=== PATIENT | male | born 1945 | race Two or more races ===

== ENCOUNTER → 2023-04-04 | Outpatient (BNV) | payer MEDICARE, MEDICAID, SELFPAY | PROVIDERS: Visit Provider Internal Medicine Hypertension Specialist | DX: N18.6 End stage renal disease (principal) | CPT/HCPCS: 90960 ==

== ENCOUNTER → 2023-05-04 | Outpatient (BNV) | payer MEDICARE, MEDICAID, SELFPAY | PROVIDERS: Visit Provider Internal Medicine Hypertension Specialist | DX: N18.6 End stage renal disease (principal) | CPT/HCPCS: 90962 ==

== ENCOUNTER → 2023-06-04 | Outpatient (BNV) | payer MEDICARE, MEDICAID, SELFPAY | PROVIDERS: Visit Provider Internal Medicine Hypertension Specialist | DX: N18.6 End stage renal disease (principal) | CPT/HCPCS: 90960 ==

== ENCOUNTER → 2023-07-05 | Outpatient (BNV) | payer MEDICARE, MEDICAID, SELFPAY | PROVIDERS: Visit Provider Internal Medicine Hypertension Specialist | DX: N18.6 End stage renal disease (principal) | CPT/HCPCS: 90961 ==

== ENCOUNTER → 2023-08-03 | Outpatient (BNV) | payer MEDICARE, MEDICAID, SELFPAY | PROVIDERS: Visit Provider Internal Medicine Hypertension Specialist | DX: N18.6 End stage renal disease (principal) | CPT/HCPCS: 90960 ==

== ENCOUNTER → 2023-09-03 | Outpatient (BNV) | payer MEDICARE, MEDICAID, SELFPAY | PROVIDERS: Visit Provider Internal Medicine Hypertension Specialist | DX: N18.6 End stage renal disease (principal) | CPT/HCPCS: 90960 ==

== ENCOUNTER → 2023-10-03 | Outpatient (BNV) | payer MEDICARE, MEDICAID, SELFPAY | PROVIDERS: Visit Provider Internal Medicine Hypertension Specialist | DX: N18.6 End stage renal disease (principal) | CPT/HCPCS: 90960 ==

== ENCOUNTER → 2023-11-03 | Outpatient (BNV) | payer MEDICARE, MEDICAID, SELFPAY | PROVIDERS: Visit Provider Internal Medicine Hypertension Specialist | DX: N18.6 End stage renal disease (principal) | CPT/HCPCS: 90960 ==

== ENCOUNTER → 2023-12-03 | Outpatient (BNV) | payer MEDICARE, MEDICAID, SELFPAY | PROVIDERS: Visit Provider Internal Medicine Hypertension Specialist | DX: N18.6 End stage renal disease (principal) | CPT/HCPCS: 90960 ==

== ENCOUNTER → 2024-01-03 | Outpatient (BNV) | payer MEDICARE, MEDICAID, SELFPAY | PROVIDERS: Visit Provider Internal Medicine Hypertension Specialist | DX: N18.6 End stage renal disease (principal) | CPT/HCPCS: 90961 ==

== ENCOUNTER → 2024-02-03 | Outpatient (BNV) | payer MEDICARE, MEDICAID, SELFPAY | PROVIDERS: Visit Provider Internal Medicine Hypertension Specialist | DX: N18.6 End stage renal disease (principal) | CPT/HCPCS: 90961 ==

== ENCOUNTER → 2024-03-04 | Outpatient (BNV) | payer MEDICARE, MEDICAID, SELFPAY | PROVIDERS: Visit Provider Internal Medicine Hypertension Specialist | DX: N18.6 End stage renal disease (principal) | CPT/HCPCS: 90961 ==

== ENCOUNTER → 2024-04-04 | Outpatient (BNV) | payer MEDICARE, MEDICAID, SELFPAY | PROVIDERS: Visit Provider Internal Medicine Hypertension Specialist | DX: N18.6 End stage renal disease (principal) | CPT/HCPCS: 90961 ==

== ENCOUNTER → 2024-05-04 | Outpatient (BNV) | payer MEDICARE, MEDICAID, SELFPAY | PROVIDERS: Visit Provider Internal Medicine Hypertension Specialist | DX: N18.6 End stage renal disease (principal) | CPT/HCPCS: 90960 ==

== ENCOUNTER → 2024-06-04 | Outpatient (BNV) | payer MEDICARE, MEDICAID, SELFPAY | PROVIDERS: Visit Provider Internal Medicine Hypertension Specialist | DX: N18.6 End stage renal disease (principal) | CPT/HCPCS: 90962 ==

== ENCOUNTER → 2024-07-05 | Outpatient (BNV) | payer MEDICARE, MEDICAID, SELFPAY | PROVIDERS: Visit Provider Internal Medicine Hypertension Specialist | DX: N18.6 End stage renal disease (principal) | CPT/HCPCS: 90961 ==

== ENCOUNTER → 2024-08-02 | Outpatient (BNV) | payer MEDICARE, MEDICAID, SELFPAY | PROVIDERS: PCP Internal Medicine; Visit Provider Internal Medicine Hypertension Specialist | DX: N18.6 End stage renal disease (principal) | CPT/HCPCS: 90961 ==

== ENCOUNTER 2024-08-08 10:54 | Outpatient (REF) | payer MEDICARE, MEDICAID, SELFPAY ==
--- NOTE | ~2024-08-08 | US_ITS ---
EXAMINATION: US TRIPLEX UPPER EXTREMITY, RIGHT CLINICAL INFORMATION: End-stage renal disease. Dialysis fistula. Swelling and redness right upper extremity. COMPARISON: None available. TECHNIQUE: Color-flow triplex imaging with spectral analysis and compression Doppler was performed on the right upper extremity. FINDINGS: There is partial compressibility phasic flow and augmentation and the right internal jugular vein. The right subclavian vein, cephalic vein, axillary, brachial, basilic demonstrated normal phasic flow and compressibility. There is a 4.8 cm irregular shaped anechoic abnormality without flow on color Doppler interrogation centered in the right axilla. US/US venous duplex UE RT IMPRESSION: Nonocclusive thrombus, right internal jugular vein. 4.8 cm fluid collection, right axilla. Findings communicated to the requesting physician. Electronically signed by: Edvin Carrero MD 08/08/2024 12:36 PM [facility]
--- OUTSIDE RECORDS SUMMARY | 2024-08-08 12:37 | XMS_ITS | Encounter Summary ---
Author Organization [facility], Address [address] [place] [address] Phone Care Team Providers Care Sales Warehouse Driver Name Role Phone Angel Dent DO Primary Care Provider [phone] Encounter Details Date Type Department Care Team (Late st Contact Info) Description 01/05/2020 Telephone [facility] [address] [place] [address] Sherlyn Curry [address] [place] [phone] Social History Tobacco Use Types Packs/Day Years Used Date Smoking Tobacco: Former Cigarettes Q uit: 2004 Smokeless Tobacco: Never Alcohol Use Standard Drinks/Week Comments Never 0 (1 standard drink = 0.6 oz pur e alcohol) AUDIT-C Answer Date Recorded Q1: How often do you have a drink containing alc ohol? Never 10/28/2019 Average Number of Drinks Not on file 020 Frequency of Binge Drinking Not on file 10/03 Comments Unknown Sex and Gender Information Value Date Recorded Sex Assigned at Not on file Legal Sex Female 5:22 PM EST Gender Identity Not on file Sexual Orientation Not on file COVID-19 Exposure Response Date Recorded In the last month, have you been in contact with someone who was confirmed or suspected to have Coronavirus / COVID-19? No / Unsure 01/05/2020 1:16 PM EDT documented as of this encounter Plan of Treatment Not on file documented as of this encounter Visit Diagnoses Not on filedocumented in this encounter Care Teams Sales Warehouse Driver Relationship Specialty Start Date End Date Angel Dent DO [address] [place] [address] PCP - General 06/14/20 documented as of this encounter
--- OUTSIDE RECORDS SUMMARY | 2024-08-08 12:37 | XMS_ITS | Clinical Summary ---
Author Organization [facility] Address [address] [place] [address] Care Team Providers Care Casting Carrier Name Role Phone Angel Dent DO Primary Care Provider [phone] Allergies No known active allergies Medications Medication Sig Dispensed Refills Start Date End Date Status Esomeprazole Magnesium (NEXIUM PO) Take 40 mg by mouth daily. 0 Active Loratadine 10 MG CAPS Take 10 mg by mouth daily. 0 Active albuterol (PROVENTIL) (2.5 MG/3ML) 0.083% nebulizer solution Take 2.5 mg by nebulization every 6 (six) hours as needed for wheezing. 0 Active fluticasone (FLONASE) 50 MCG/ACT nasal spray spray/apply 1 spray in each nostril daily. 0 Active simvastatin (ZOCOR) tablet 10 mg Take 20 mg by mouth every night at bedtime. 0 Active Magnesium Oxide 400 (241.3 MG) MG TABS tablet Take 400 mg by mouth 2 (two) times a day. 0 Active D3-50 41854 UNITS capsule TAKE ONE CAPSULE ONCE WEEKLY 2 03/05/2017 Active Adalimumab (HUMIRA) 40 MG/0.8ML injection Inject 40 mg under the skin every 14 (fourteen) days. 0 Active donepezil (ARICEPT) 5 MG tablet Take 5 mg by mouth daily. 11 02/24/2018 Active Insulin Glargine (BASAGLAR KWIKPEN) 100 UNIT/ML SOPN Inject 30 Units as directed daily. 2 03/12/2018 Active SITagliptin (JANUVIA) 25 MG tablet Take 25 mg by mouth daily. 0 Active Calcifediol ER (RAYALDEE) 30 MCG CPCR Take by mouth. 0 Active amLODIPine (NORVASC) tablet 10 mg Take 10 mg by mouth daily. 0 Active Active Problems Problem Noted Date Diagnosed Date Iron deficiency anemia due to chronic blood loss 04/04/2017 Family History Medical History Relation Name Comments Heart attack Father Cancer Mother Relation Name Status Comments Father Mother Social History Tobacco Use Types Packs/Day Years Used Date Smoking Tobacco: Former Smokeless Tobacco: Never Alcohol Use Standard Drinks/Week Comments No 0 (1 standard drink = 0.6 oz pur e alcohol) Sex and Gender Information Value Date Recorded Sex Assigned at Not on file Gender Identity Not on file Sexual Orientation Not on file Last Filed Vital Signs Vital Sign Reading Time Taken Comments Blood Pressure 171/90 11/29/2018 9:46 AM EDT Pulse 76 11/29/2018 9:46 AM EDT Temperature 37.3 ??C (99.2 ??F) 11/29/2018 9:46 AM ED T Respiratory Rate - - Oxygen Saturation - - Inhaled Oxygen Concentration - - Weight 82.6 kg (182 lb 3.2 oz) 11/29/2018 9:46 A M EDT Height 152.4 cm (5') 04/15/2018 10:05 AM EST Body Mass Index 35.58 04/15/2018 10:05 AM EST Plan of Treatment Health Maintenance Due Date Last Done Comments Hepatitis C Screening 1945 COVID-19 Vaccine (#1) 1947 Depression Screening 1959 Preventative Health Evaluation 1965 DTap / Tdap / Td (1 - Tdap) 1966 Shingrix-Zoster Vaccine (1 of 2) 1997 Fall Risk Assessment 2012 Osteoporosis Screening (DEXA Scan) 2012 Pneumococcal Vaccine (1 of 1 - PCV) 2012 RSV Adult > 60+ Yrs or Pregn ant (1 - 1-dose 75+ series) 2022 Influenza Vaccine (#1) 2024 Hepatitis B Vaccines Aged Out No long er eligible based on patient's age to complete this topic RSV Ped < 20 months Aged Out No longe r eligible based on patient's age to complete this topic Care Teams Casting Carrier Relationship Specialty Start Date End Date Angel Dent DO [address] [place] [id number] PCP - General Internal Medicine 03/26/17
--- OUTSIDE RECORDS SUMMARY | 2024-08-08 12:37 | XMS_ITS | Clinical Summary ---
Author Organization [facility], Address [address] [place] [address] Phone Care Team Providers Care Change Management Director Name Role Phone Angel Dent DO Primary Care Provider [phone] Allergies No known active allergies Medications JANUVIA 25 MG tablet TK 1 T PO DAILY 0 Active RAYALDEE 30 MCG capsule controlled-rele ase 0 Active BASAGLAR KWIKPEN 100 UNIT/ML injection Inject 30 Units under the skin 1 (one) time each day 0 Active HUMIRA 40 MG/0.8ML Prefilled Syringe Kit 0 Active amLODIPine (NORVASC) 10 MG tablet Take 10 mg by mouth Active donepezil (ARICEPT) 5 MG tablet 10 mg 0 Active esomeprazole (NexIUM) [address] capsule Take 40 mg by mouth 1 (one) time each day 0 Active fluticasone (FLONASE) 50 MCG/ACT nasal spray TK 1 SPRAY IEN QD 0 Active loratadine (CLARITIN) 10 MG tablet TK 1 T PO QD 0 Active magnesium oxide (MAG-OX) 400 (241.3 Mg) MG tablet Take 400 mg by mouth Active RENVELA 800 MG tablet TK 1 T PO TID BEFORE MEALS 0 Active simvastatin (ZOCOR) 20 MG tablet Take 20 mg by mouth every night Active VELTASSA 16.8 g pack TK 2 PACKETS UTD ONCE D 0 Active metoprolol succinate XL (TOPROL-XL) 50 MG 24 hr tablet Take 50 mg by mouth 2 (two) times a day Do not crush or chew. Active amitriptyline (ELAVIL) 75 MG tablet TK 1 T PO QHS 0 Active albuterol HFA (PROVENTIL HFA;VENTOLIN HFA) 108 (90 Base) MCG/ACT inhaler Inhale 2 puffs 4 (four) times a day prn Active insulin glargine (LANTUS) 100 UNIT/ML injection Inject 30 Units under the skin 1 (one) time each day Active torsemide (DEMADEX) 20 MG tablet Take 20 mg by mouth twice a day Active LORazepam (ATIVAN) 1 MG tablet TAKE 1 TABLET BY MOUTH 3 TIMES PER WEEK, Sunday AND SUNDAY MORNINGS 30 tablet 3 Active LORazepam (ATIVAN) 1 MG tablet Take 1 tablet (1 mg total) by mouth 3 times weekly: Sun and Sunday morning Maybe repeat dose x1 30 tablet 2 3 Active spironolactone (ALDACTONE) 25 MG tablet Take 1 tablet (25 mg total) by mouth in the morning and 1 tablet (25 mg total) in the evening. 180 tablet 3 3 Active Active Problems Problem Noted Date Diagnosed Date End stage renal disease 09/26/2019 Hypertension 09/26/2019 Diabetes mellitus 09/26/2019 Chronic obstructive pulmonary disease 09/26/2019 Asthma 09/26/2019 Hypercholesterolemia 09/26/2019 Unspecified dementia, unspec ified severity, without behavioral disturbance, psychotic disturbance, mood disturbance, and anxiety 09/26/2019 Anemia 09/26/2019 Rheumatoid arthritis 09/26/2019 Chronic iron deficiency anemia secondary to bloo d loss 04/04/2017 Family History Medical History Relation Comments Cancer Mother Diabetes Mother Heart disease Mother Hypertension Mother Heart disease Sibling 4 Brothers Relation Status Comments Father Mother Sibling Social History Tobacco Use Types Packs/Day Years Used Date Smoking Tobacco: Former Cigarettes Q uit: 2005 Smokeless Tobacco: Never Alcohol Use Standard Drinks/Week [...] Sign Reading Time Taken Comments Blood Pressure 169/97 01/05/2020 1:42 PM EDT Pulse 67 01/05/2020 1:42 PM EDT Temperature 36.8 ??C (98.2 ??F) 01/05/2020 1:42 PM ED T Respiratory Rate 15 01/05/2020 1:42 PM EDT Oxygen Saturation 97% 01/05/2020 1:42 PM EDT Inhaled Oxygen Concentration - - Weight 80.3 kg (177 lb) 01/05/2020 1:42 PM EDT Height 160 cm (5' 3 ) 01/05/2020 1:42 PM EDT Body Mass Index 31.35 01/05/2020 1:42 PM EDT Plan of Treatment Health Maintenance Due Date Last Done Comments Pneumococcal Vaccine: 65+ Ye ars (1 of 2 - PCV) 1953 Hepatitis B Vaccine (1 of 5 - Risk Dialysis 4-dose series) 1967 Diabetes: Ophthalmology Exam 07/05/2020 Diabetes: Pedal Pulse Checked 07/05/2020 Diabetes: Sensory Foot Exam 07/05/2020 Diabetes: Visual Foot Exam 07/05/2020 Diabetes: Hemoglobin A1C 06/08/2022 022, 12/07/2021, 09/07/2021, Additional history exists Influenza Vaccine (#1) 2024 Procedures Procedure Name Priority Date/Time Associated Diagnosis Comments SPECIAL CHEMISTRY Routine 03/08/2022 6:0 0 AM EDT from Last 3 Months or Most Recently Relevant to Health Maintenance Results * SPECIAL CHEMISTRY (03/08/2022 6:00 AM EDT) Hemoglobin A1C 5.2 4.8 - 5.9 % [email or web address] 03/08/2022 6:00 AM EDT 03/09/2022 7:00 AM EDT Narrative [facility] - 03/08/2022 6:00 AM EDT Unless otherwise specified, test(s) performed at: [id number] DISHCLOTH FOLDER: Wilmer Potter M.D. For any questions, please call customer service at [email or web address] Resulting Agency Comment Specimen source: Blood Darren Harris MD LAB BLOOD BANK TEST ORDERABLES Final Result [facility] from Last 3 Months or Most Recently Relevant to Health Maintenance Insurance [place] Care Teams Change Management Director Relationship Specialty Start Date End Date Angel Dent DO [address] [place] [address] PCP - General 06/14/20
--- OUTSIDE RECORDS SUMMARY | 2024-08-08 12:37 | XMS_ITS | Encounter Summary ---
Author Organization [facility] Address [address] [place] [address] Phone Care Team Providers Care Core Winding Operator Name Role Phone Angel Dent DO Primary Care Provider Reason for Visit * Reason Onset Date Comments Med Refill 05/15/2022 Encounter Details Date Type Department Care Team (Late st Contact Info) Description 05/15/2022 Refill [facility] [address] [place] [phone] Emily Kessler [address] [place] [phone] Social History Tobacco Use Types Packs/Day Years [...] on file Sexual Orientation Not on file documented as of this encounter Plan of Treatment Not on file documented as of this encounter Visit Diagnoses Not on filedocumented in this encounter Care Teams Core Winding Operator Relationship Specialty Start Date End Date Angel Dent DO [address] [place] [address] PCP - General 06/14/20 documented as of this encounter
--- OUTSIDE RECORDS SUMMARY | 2024-08-08 12:37 | XMS_ITS | Encounter Summary ---
Author Organization [facility] Address [address] [place] [address] Phone Care Team Providers Care Black Top Paver Operator Name Role Phone Angel Dent DO Primary Care Provider [phone] Reason for Visit * Reason Onset Date Comments Med Refill 09/12/2021 Encounter Details Date Type Department Care Team (Late st Contact Info) Description 09/12/2021 Refill [facility] [address] [place] [phone] Emily Kessler [address] [place] [phone] Social History Tobacco Use Types Packs/Day Years [...] on filedocumented in this encounter Care Teams Black Top Paver Operator Relationship Specialty Start Date End Date Angel Dent DO [address] [place] [address] PCP - General 06/14/20 documented as of this encounter
--- OUTSIDE RECORDS SUMMARY | 2024-08-08 12:37 | XMS_ITS | Encounter Summary ---
Author Organization [facility] Address [address] [place] [address] Phone Care Team Providers Care Otr Van Cdl Truck Driver Name Role Phone Angel Dent DO Primary Care Provider [phone] Reason for Visit * Reason Onset Date Comments Med Refill 09/14/2021 Encounter Details Date Type Department Care Team (Late st Contact Info) Description 09/14/2021 Refill [facility] [address] [place] [phone] Emily Kessler [address] [place] [phone] Social History Tobacco Use Types Packs/Day Years [...] on filedocumented in this encounter Care Teams Otr Van Cdl Truck Driver Relationship Specialty Start Date End Date Angel Dent DO [address] [place] [address] PCP - General 06/14/20 documented as of this encounter
--- OUTSIDE RECORDS SUMMARY | 2024-08-08 12:37 | XMS_ITS | Clinical Summary ---
Author Organization [address] [facility] Address [address] [place] [id number] Phone Care Team Providers Care Coconut Boiler Name Role Phone Angel Dent DO Primary Care Provider [phone] Allergies No known active allergies Medications traZODone (DESYREL) 150 mg tablet Take 0.5 tablets (75 mg total) by mouth at bedtime as needed for sleep. 4 Active simvastatin (ZOCOR) 20 mg tablet Take 1 tablet (20 mg total) by mouth daily. 9 Active sevelamer carbonate (RENVELA) 800 mg tablet Take 1 tablet (800 mg total) by mouth 3 (three) times a day with meals. Active omeprazole (PriLOSEC) [address] capsule Take 1 capsule (40 mg total) by mouth 1 (one) time each day. Active metoprolol succinate (TOPROL-XL) 100 mg 24 hr tablet Take 1 tablet (100 mg total) by mouth daily. Active LORazepam (ATIVAN) 1 mg tablet Take 3 tablets (3 mg total) by mouth if needed (Prior to dialysis as needed for anxiety). Active Tradjenta 5 mg tablet Take 1 tablet (5 mg total) by mouth 1 (one) time each day. 4 Active Trelegy Ellipta 200-62.5-25 mcg inhaler Inhale 1 puff (200 mcg total) by mouth 1 (one) time each day. Active budesonide-form oteroL (SYMBICORT) 160-4.5 mcg/actuation inhaler Inhale 2 puffs by mouth 1 (one) time each day. Active apixaban (ELIQUIS) 5 mg tablet Take 1 tablet (5 mg total) by mouth 2 (two) times a day. 60 each 5 Active midodrine (PROAMATINE) 5 mg tablet Take 1 tablet (5 mg total) by mouth 1 (one) time each day if needed (in dialysis for hypotension) . 30 each 5 Active hydrALAZINE (APRESOLINE) 100 mg tablet Take 1 tablet (100 mg total) by mouth 3 (three) times a day. 270 tablet 1 5 Active hydrALAZINE (APRESOLINE) 100 mg tablet Take 1 tablet (100 mg total) by mouth 3 (three) times a day. 90 each 5 07/30/19 25 Discontinue d(Reorder) polyethylene glycol (MIRALAX) 17 gram packet Take 17 g by mouth 1 (one) time each day if needed for constipation . 30 each 5 07/25/19 25 Active Problems Problem Noted Date Diagnosed Date Leg edema, left 06/16/2024 End stage renal disease on dialysis 06/07/2024 Resolved Problems Problem Noted Date Diagnosed Date Resolved Date Arteriovenous fistula occlusion 06/05/2024 06/25/2024 Encounters Date Type Department Care Team Description 07/04/2024 4:58 PM EST - 07/04/2024 11:59 PM EST Hospital Encounter [facility] X[facility] [address] [place] [address] Foot pain, left Discharge Disposition: Home or Self Care 07/04/2024 4:58 PM EST - 07/04/2024 11:59 PM EST Hospital Encounter [facility] [address] [place] [address] Finger pain, right Discharge Disposition: Home or Self Care 07/04/2024 12:10 PM EST - 07/04/2024 4:49 PM EST Emergency [facility] Emergency [address] [place] [address] Osito Sinclair MD Anemia in chronic kidney disease, on chronic dialysis (CMS/[facility]) (Primary Dx) Discharge Disposition: Home or Self Care 06/23/2024 2:47 PM EST Anesthesia Event [facility] Interventional Radiology [address] [place] [phone] Gabbi Sandhu MD Saliga, Jesse L, MD 06/10/2024 8:39 AM EST Anesthesia Event [facility] Inter[facility] [address] [place] [phone] Mata Ibrahim DO 06/05/2024 5:08 PM EST - 06/25/2024 5:34 PM EST Hospital Encounter [facility] [address] [place] [address] Xavi Brower MD Jones, MD Arcelia Wade, MD Tariq Trna Manikandan, MD Mohani, MD Miguelina Leg edema, left (Primary Dx); End stage renal disease on dialysis ([facility]); Arteriovenous fistula occlusion, initial encounter ([facility] [place] [place]); Arteriovenous fistula occlusion ([facility] [place] [place]); Hematoma of right chest wall, initial encounter Discharge Disposition: Home-Health Care Svc from Last 3 Months Medical History Medical History Date Comments End stage renal disease ([facility]) DX:End stage renal disease ([facility]); COMMENT: on dialysis every Sunday/Sunday/Sunday Alzheimer's dementia ([facility]) D X:Alzheimer's dementia ([facility]) H/O umbilical hernia repair DX:H /O umbilical hernia repair Social History Tobacco Use Types Packs/Day Years Used Date Smoking Tobacco: Never Smokeless Tobacco: Never Alcohol Use Standard Drinks/Week Comments Never 0 (1 standard drink = 0.6 oz pur e alcohol) Interpersonal Safety Answer Date Record ed Physical Abuse 06/06/2024 Verbal Abuse 06/06/2024 Comments Unknown Sex and Gender Information Value Date Recorded Sex Assigned at Female 06/05/2024 5:20 PM EST Legal Sex Female 8:25 AM EST Gender Identity Female 06/05/2024 5:20 PM EST Sexual Orientation Straight 06/05/2024 6: 19 PM EST Obstetrics History Last Filed Vital Signs Vital Sign Reading Time Taken Comments Blood Pressure 135/43 07/04/2024 4:05 PM EST Pulse 66 07/04/2024 4:05 PM EST Temperature 36.8 ??C (98.3 ??F) 07/04/2024 4:05 PM ES T Respiratory Rate 18 07/04/2024 4:05 PM EST Oxygen Saturation 97% 07/04/2024 4:05 PM EST Inhaled Oxygen Concentration - - Weight 83.5 kg (184 lb) 07/04/2024 11:13 AM EST Height 157.5 cm (5' 2 ) 07/04/2024 11:13 AM EST Body Mass Index 33.65 07/04/2024 11:13 AM EST Plan of Treatment Upcoming Encounters Date Type Department Care Team (Late st Contact Info) Description 08/19/2024 9:30 AM EDT Consult Orthopedic Surgery - [place] [address] [facility] [address] [place] [phone] Josh Cintron MD [address] [facility] [address] [place] [address] Health Maintenance Due Date Last Done Comments Diabetes: Annual Foot Exam 1957 Diabetes: Annual Retina Eye Exam 1955 DTaP,Tdap,and Td Vaccines (1 - Tdap) 1966 Pneumococcal Vaccine: 50+ Years (1 of 2 - PCV) 1966 Zoster Vaccines (1 of 2) 1997 RSV Immunization Patients 60+ Years Old (1 - 1-dose 75+ series) 2022 Cholesterol Screening (Lipid Panel) 05/07/2022 Depression Screening 05/07/2022 Hepatitis C Screening 05/07/2022 Medicare Annual Wellness Visit 05/07/2022 Social Influencers of Health Screening 05/07/2022 Diabetes: Annual Urine Albumin-Creatinine Ratio (uACR) 05/19/2022 COVID-19 Vaccine ( season) 2024 11/22/2021, 04/01/2021, 07/27/2020, Additional history exists Influenza Vaccine (#1) 2024 Diabetes: Blood Sugar Control Test (HGBA1C) 10/13/2024 04/15/2024 Falls Risk Assessment 06/25/2025 06/25/2024 Diabetes: Annual GFR (Glomerular Filtration Rate) 07/04/2025 07/04/2024, 06/25/2024, 06/24/2024, Additional history exists Hypertension/CHF/CAD Annual BMP Blood Test 07/04/2025 07/04/2024, 06/25/2024, 06/24/2024, Additional history exists Osteoporosis Screening (Bone Density Screening) 08/19/2031 08/18/2021 HIB Vaccines Aged Out No longer eligi ble based on patient's age to complete this topic HPV Vaccines Aged Out No longer eligi ble based on patient's age to complete this topic Hepatitis A Vaccines Aged Out No long er eligible based on patient's age to complete this topic Hepatitis B Vaccines Aged Out No long er eligible based on patient's age to complete this topic IPV Vaccines Aged Out No longer eligi ble based on patient's age to complete this topic MMR Vaccines Aged Out No longer eligi ble based on patient's age to complete this topic Meningococcal ACWY Vaccine Aged Out N o longer eligible based on patient's age to complete this topic Meningococcal B Vacine Aged Out No lo nger eligible based on patient's age to complete this topic RSV Immunization Patients Under 20 months Aged Out No longer eligible based on patient's age to complete this topic Varicella Vaccines Aged Out No longer eligible based on patient's age to complete this topic Medical Devices Implanted Type Area Glassware Maker Device Identifier Shelf Expiration Date Model / Serial / Lot Cath Dial W/Vt Kt [id number] Palindrome Precision - [id number] Implanted:Qty : 1 on 06/10/2024 by Mata Day MD at [facility] Dialysis Catheters Left: Chest Wall [facility] [id number] 09/01/2028 [id number] / / [id number] Stent Viabahn Sx Endo [id number] 10f - [id number] - [id number] Implanted:Qty : 1 on 06/23/2024 by Nena Olivares MD at [facility] Peripheral Vasc Bare Metal Stents Right: Subclavian [employer] [id number] 09/11/2025 [id number] / [id number] / Stent Viabahn Heparin [id number] m 10f - [id number] - [id number] Implanted:Qty : 1 on 06/23/2024 by Nena Olivares MD at [facility] Peripheral Vasc Drug Eluting Stents Right: Subclavian [employer] [id number] 11/11/2025 [id number] / [id number] / Procedures Procedure Name Priority Date/Time Associated Diagnosis Comments XR FOOT 3+ VIEWS LEFT Routine 07/04/2024 5:19 PM EST Foot pain, left XR HAND 3+ VIEWS RIGHT Routine 5:19 PM EST Finger pain, right PREPARE RBC Routine 07/04/2024 12:39 PM EST CBC WITH AUTO DIFFERENTIAL STAT 07/04/2024 11:20 AM EST TYPE AND SCREEN STAT 07/04/2024 11:20 AM EST COMPREHENSIVE METABOLIC PANEL STAT 07/04/2024 11:20 AM EST CBC AND DIFFERENTIAL STAT 07/04/2024 11:20 AM EST IA CRITICAL CARE 30-74 MINUTES Routine 07/04/2024 10:52 AM EST POCT GLUCOSE BLOOD Routine 06/25/2024 4: 10 PM EST POCT GLUCOSE BLOOD Routine 06/25/2024 11 :55 AM EST POCT GLUCOSE BLOOD Routine 06/25/2024 6: 25 AM EST BASIC METABOLIC PANEL Routine 06/25/2024 3:58 AM EST COMPLETE BLOOD COUNT Routine 06/25/2024 3:58 AM EST HEPARIN ANTI XA Timed 06/25/2024 3:58 AM EST HEPARIN ANTI XA Timed 06/24/2024 10:00 PM EST POCT GLUCOSE BLOOD Routine 06/24/2024 8: 05 PM EST HEPARIN ANTI XA Timed 06/24/2024 4:40 PM EST POCT GLUCOSE BLOOD Routine 06/24/2024 4: 25 PM EST HEPARIN ANTI XA STAT 06/24/2024 11:20 AM EST POCT GLUCOSE BLOOD Routine 06/24/2024 11 :11 AM EST HEMODIALYSIS INPATIENT Routine 10:26 AM EST HEMODIALYSIS INPATIENT Routine 10:23 AM EST POCT GLUCOSE BLOOD Routine 06/24/2024 8: 21 AM EST HEPARIN ANTI XA Routine 06/24/2024 6:21 AM EST BASIC METABOLIC PANEL Routine 06/24/2024 6:21 AM EST COMPLETE BLOOD COUNT Routine 06/24/2024 6:21 AM EST POCT GLUCOSE BLOOD Routine 06/23/2024 10 :37 PM EST HEMODIALYSIS INPATIENT Routine 10:06 PM EST POCT GLUCOSE BLOOD Routine 06/23/2024 5: 56 PM EST IR VENOGRAM UPPER EXTREMITY RIGHT Routine 06/23/2024 5:05 PM EST POCT ACTIVATED CLOTTING TIME, KAOLIN Routine 06/23/2024 4:10 PM EST TH AN LMA(NO CHARGE) Routine 06/23/2024 3:10 PM EST POCT GLUCOSE BLOOD Routine 06/23/2024 1: 58 PM EST POCT GLUCOSE BLOOD Routine 06/23/2024 12 :31 PM EST POCT GLUCOSE BLOOD Routine 06/23/2024 10 :59 AM EST POCT GLUCOSE BLOOD Routine 06/23/2024 6: 46 AM EST HEPARIN ANTI XA Routine 06/23/2024 6:31 AM EST BASIC METABOLIC PANEL Routine 06/23/2024 6:31 AM EST COMPLETE BLOOD COUNT Routine 06/23/2024 6:31 AM EST ECG ANNOTATED 06/23/2024 POCT GLUCOSE BLOOD Routine 06/22/2024 8: 35 PM EST POCT GLUCOSE BLOOD Routine 06/22/2024 4: 24 PM EST POCT GLUCOSE BLOOD Routine 06/22/2024 11 :53 AM EST POCT GLUCOSE BLOOD Routine 06/22/2024 7: 52 AM EST HEPARIN ANTI XA Timed 06/22/2024 6:19 AM EST BASIC METABOLIC PANEL Routine 06/22/2024 6:19 AM EST COMPLETE BLOOD COUNT Routine 06/22/2024 6:19 AM EST POCT GLUCOSE BLOOD Routine 06/22/2024 1: 37 AM EST POCT GLUCOSE BLOOD Routine 06/21/2024 8: 34 PM EST POCT GLUCOSE BLOOD Routine 06/21/2024 4: 21 PM EST POCT GLUCOSE BLOOD Routine 06/21/2024 11 :22 AM EST HEPARIN ANTI XA Routine 06/21/2024 10:46 AM EST POCT GLUCOSE BLOOD Routine 06/21/2024 8: 14 AM EST BASIC METABOLIC PANEL Routine 06/21/2024 6:11 AM EST COMPLETE BLOOD COUNT Routine 06/21/2024 6:10 AM EST HEPARIN ANTI XA Routine 06/21/2024 2:40 AM EST HEPARIN ANTI XA Timed 06/20/2024 8:38 PM EST POCT GLUCOSE BLOOD Routine 06/20/2024 7: 55 PM EST POCT GLUCOSE BLOOD Routine 06/20/2024 4: 19 PM EST HEPARIN ANTI XA STAT 06/20/2024 12:17 PM EST POCT GLUCOSE BLOOD Routine 06/20/2024 11 :08 AM EST HEPARIN ANTI XA Routine 06/20/2024 9:45 AM EST POCT GLUCOSE BLOOD Routine 06/20/2024 7: 27 AM EST HEPARIN ANTI XA Routine 06/20/2024 6:52 AM EST BASIC METABOLIC PANEL Routine 06/20/2024 6:52 AM EST COMPLETE BLOOD COUNT Routine 06/20/2024 6:52 AM EST POCT GLUCOSE BLOOD Routine 06/19/2024 8: 15 PM EST POCT GLUCOSE BLOOD Routine 06/19/2024 4: 25 PM EST HEMODIALYSIS INPATIENT Routine 12:16 PM EST POCT GLUCOSE BLOOD Routine 06/19/2024 11 :11 AM EST POCT GLUCOSE BLOOD Routine 06/19/2024 8: 33 AM EST HEPARIN ANTI XA Routine 06/19/2024 7:03 AM EST BASIC METABOLIC PANEL Routine 06/19/2024 7:03 AM EST COMPLETE BLOOD COUNT Routine 06/19/2024 7:03 AM EST SST - GOLD Routine 06/19/2024 7:02 AM EST EXTRA TUBES Routine 06/19/2024 7:02 AM EST POCT GLUCOSE BLOOD Routine 06/18/2024 8: 26 PM EST POCT GLUCOSE BLOOD Routine 06/18/2024 4: 20 PM EST POCT GLUCOSE BLOOD Routine 06/18/2024 11 :49 AM EST HEPARIN ANTI XA Routine 06/18/2024 6:07 AM EST BASIC METABOLIC PANEL Routine 06/18/2024 5:47 AM EST COMPLETE BLOOD COUNT Routine 06/18/2024 5:47 AM EST POCT GLUCOSE BLOOD Routine 06/18/2024 3: 55 AM EST POCT GLUCOSE BLOOD Routine 06/17/2024 7: 59 PM EST POCT GLUCOSE BLOOD Routine 06/17/2024 4: 09 PM EST HEMODIALYSIS INPATIENT Routine 12:16 PM EST HEPARIN ANTI XA Timed 06/17/2024 11:28 AM EST POCT GLUCOSE BLOOD Routine 06/17/2024 11 :03 AM EST POCT GLUCOSE BLOOD Routine 06/17/2024 8: 04 AM EST BASIC METABOLIC PANEL Routine 06/17/2024 5:27 AM EST COMPLETE BLOOD COUNT Routine 06/17/2024 5:27 AM EST HEPARIN ANTI XA Timed 06/17/2024 5:27 AM EST HEPARIN ANTI XA STAT 06/16/2024 11:11 PM EST HEPARIN ANTI XA STAT 06/16/2024 8:42 PM EST POCT GLUCOSE BLOOD Routine 06/16/2024 8: 38 PM EST VAS US DUPLEX LOWER EXT VENOUS LEFT Routine 06/16/2024 7:25 PM EST Leg edema, left HEPARIN ANTI XA Timed 06/16/2024 6:47 PM EST POCT GLUCOSE BLOOD Routine 06/16/2024 5: 37 PM EST HEPARIN ANTI XA STAT 06/16/2024 1:08 PM EST ACTIVATED PARTIAL THROMBOPLASTIN TIME STAT 06/16/2024 1:08 PM EST PROTHROMBIN TIME WITH INR STAT 06/16/2024 1:08 PM EST POCT GLUCOSE BLOOD Routine 06/16/2024 11 :[address] NECK SOFT TISSUE W CONTRAST STAT 06/16/2024 10:59 AM EST COMPLETE BLOOD COUNT STAT 06/16/2024 8:23 AM EST BASIC METABOLIC PANEL STAT 06/16/2024 8:23 AM EST POCT GLUCOSE BLOOD Routine 06/16/2024 8: 12 AM EST POCT GLUCOSE BLOOD Routine 06/15/2024 8: 54 PM EST POCT GLUCOSE BLOOD Routine 06/15/2024 4: 15 PM EST POCT GLUCOSE BLOOD Routine 06/15/2024 11 :42 AM EST POCT GLUCOSE BLOOD Routine 06/15/2024 8: 19 AM EST BASIC METABOLIC PANEL Routine 06/15/2024 7:01 AM EST COMPLETE BLOOD COUNT Routine 06/15/2024 7:01 AM EST POCT GLUCOSE BLOOD Routine 06/15/2024 6: 34 AM EST POCT GLUCOSE BLOOD Routine 06/14/2024 8: 36 PM EST HEMODIALYSIS INPATIENT Routine 5:38 PM EST POCT GLUCOSE BLOOD Routine 06/14/2024 4: 10 PM EST POCT GLUCOSE BLOOD Routine 06/14/2024 10 :57 AM EST VAS US DUPLEX UPPER EXT VENOUS RIGHT Routine 06/14/2024 9:21 AM EST Arteriovenous fistula occlusion, initial encounter ([facility]) POCT GLUCOSE BLOOD Routine 06/14/2024 8: 22 AM EST MANUAL DIFFERENTIAL - SYSMEX WAM Routine 06/14/2024 6:59 AM EST CBC WITH AUTO DIFFERENTIAL Routine 06/14/2024 6:59 AM EST CBC AND DIFFERENTIAL Routine 06/14/2024 6:59 AM EST BASIC METABOLIC PANEL Routine 06/14/2024 6:59 AM EST MAGNESIUM Routine 06/14/2024 6:59 AM EST PHOSPHORUS Routine 06/14/2024 6:59 AM EST POCT GLUCOSE BLOOD Routine 06/14/2024 12 :15 AM EST POCT GLUCOSE BLOOD Routine 06/13/2024 4: 16 PM EST POCT GLUCOSE BLOOD Routine 06/13/2024 11 :21 AM EST POCT GLUCOSE BLOOD Routine 06/13/2024 8: 30 AM EST BASIC METABOLIC PANEL STAT 06/13/2024 7:54 AM EST HEMODIALYSIS INPATIENT Routine 7:44 PM EST POCT GLUCOSE BLOOD Routine 06/12/2024 7: 42 PM EST POCT GLUCOSE BLOOD Routine 06/12/2024 4: 23 PM EST XR KNEE 1-2 VIEWS LEFT Routine 4:19 PM EST POCT GLUCOSE BLOOD Routine 06/12/2024 11 :08 AM EST POCT GLUCOSE BLOOD Routine 06/12/2024 8: 31 AM EST BASIC METABOLIC PANEL STAT 06/12/2024 8:10 AM EST COMPLETE BLOOD COUNT STAT 06/12/2024 8:10 AM EST CBC WITH AUTO DIFFERENTIAL Routine 06/12/2024 6:09 AM EST CBC AND DIFFERENTIAL Routine 06/12/2024 6:09 AM EST BASIC METABOLIC PANEL Routine 06/12/2024 6:09 AM EST HEMODIALYSIS INPATIENT Routine 10:57 PM EST POCT GLUCOSE BLOOD Routine 06/11/2024 8: 25 PM EST POCT GLUCOSE BLOOD Routine 06/11/2024 4: [address] ANGIO CHEST WO AND/OR W CONTRAST STAT 06/11/2024 4:00 PM EST Hematoma of right chest wall, initial encounter POCT GLUCOSE BLOOD Routine 06/11/2024 11 :28 AM EST POCT GLUCOSE BLOOD Routine 06/11/2024 8: 21 AM EST CBC WITH AUTO DIFFERENTIAL Routine 06/11/2024 6:58 AM EST CBC AND DIFFERENTIAL Routine 06/11/2024 6:58 AM EST MAGNESIUM Routine 06/11/2024 6:58 AM EST PHOSPHORUS Routine 06/11/2024 6:58 AM EST BASIC METABOLIC PANEL Routine 06/11/2024 6:58 AM EST TRANSFUSE RED BLOOD CELLS Routine 06/11/2024 12:50 AM EST PREPARE RBC Routine 06/10/2024 11:30 PM EST HEMOGLOBIN AND HEMATOCRIT Routine 06/10/2024 9:13 PM EST POCT GLUCOSE BLOOD Routine 06/10/2024 7: [address] ABDOMEN PELVIS WO CONTRAST STAT 06/10/2024 5:58 PM EST POCT GLUCOSE BLOOD Routine 06/10/2024 4: 30 PM EST TRANSFUSE RED BLOOD CELLS Routine 06/10/2024 12:58 PM EST POCT GLUCOSE BLOOD Routine 06/10/2024 12 :02 PM EST TYPE AND SCREEN Routine 06/10/2024 10:08 AM EST IR INSERT TUNNELED CVC WO PORT OR PUMP MORE 5YRS LEFT Routine 06/10/2024 9:39 AM EST PREPARE RBC Routine 06/10/2024 8:59 AM EST TH AN ENDOTRACHEAL(NO CHARGE) Routine 06/10/2024 8:56 AM EST POCT GLUCOSE BLOOD Routine 06/10/2024 6: 17 AM EST CBC WITH AUTO DIFFERENTIAL Routine 06/10/2024 4:08 AM EST CBC AND DIFFERENTIAL Routine 06/10/2024 4:08 AM EST BASIC METABOLIC PANEL Routine 06/10/2024 4:08 AM EST HEPARIN ANTI XA Routine 06/10/2024 4:08 AM EST POCT GLUCOSE BLOOD Routine 06/10/2024 12 :54 AM EST POCT GLUCOSE BLOOD Routine 06/09/2024 8: 43 PM EST HEMODIALYSIS INPATIENT Routine 7:50 PM EST POCT GLUCOSE BLOOD Routine 06/09/2024 4: 46 PM EST POCT GLUCOSE BLOOD Routine 06/09/2024 2: 02 PM EST POCT GLUCOSE BLOOD Routine 06/09/2024 11 :57 AM EST HEPARIN ANTI XA Routine 06/09/2024 11:40 AM EST POCT GLUCOSE BLOOD Routine 06/09/2024 10 :58 AM EST POCT GLUCOSE BLOOD Routine 06/09/2024 10 :05 AM EST POCT GLUCOSE BLOOD Routine 06/09/2024 6: 09 AM EST LAVENDER - EDTA Routine 06/09/2024 5:32 AM EST EXTRA TUBES Routine 06/09/2024 5:32 AM EST BASIC METABOLIC PANEL Routine 06/09/2024 5:32 AM EST HEPARIN ANTI XA Routine 06/09/2024 5:32 AM EST POCT GLUCOSE BLOOD Routine 06/09/2024 1: 41 AM EST HEPARIN ANTI XA Routine 06/08/2024 10:44 PM EST POCT GLUCOSE BLOOD Routine 06/08/2024 8: 37 PM EST POCT GLUCOSE BLOOD Routine 06/08/2024 3: 41 PM EST HEPARIN ANTI XA Routine 06/08/2024 3:13 PM EST POCT GLUCOSE BLOOD Routine 06/08/2024 11 :48 AM EST POCT GLUCOSE BLOOD Routine 06/08/2024 7: 50 AM EST HEPARIN ANTI XA Routine 06/08/2024 7:16 AM EST COMPLETE BLOOD COUNT Routine 06/08/2024 7:16 AM EST BASIC METABOLIC PANEL Routine 06/08/2024 7:16 AM EST POCT GLUCOSE BLOOD Routine 06/07/2024 10 :38 PM EST POCT GLUCOSE BLOOD Routine 06/07/2024 4: 12 PM EST HEPARIN ANTI XA Routine 06/07/2024 3:28 PM EST POCT GLUCOSE BLOOD Routine 06/07/2024 11 :17 AM EST LAVENDER - EDTA Routine 06/07/2024 8:52 AM EST EXTRA TUBES Routine 06/07/2024 8:52 AM EST HEPATITIS B SURFACE ANTIGEN WITH CONFIRMATION Routine 06/07/2024 8:51 AM EST HEPATITIS B SURFACE ANTIBODY QUANTITATIVE Routine 06/07/2024 8:51 AM EST HEPARIN ANTI XA Routine 06/07/2024 8:51 AM EST POCT GLUCOSE BLOOD Routine 06/07/2024 7: 42 AM EST POCT GLUCOSE BLOOD Routine 06/07/2024 6: 31 AM EST CBC WITH AUTO DIFFERENTIAL Routine 06/07/2024 2:45 AM EST PHOSPHORUS Routine 06/07/2024 2:45 AM EST MAGNESIUM Routine 06/07/2024 2:45 AM EST CBC AND DIFFERENTIAL Routine 06/07/2024 2:45 AM EST BASIC METABOLIC PANEL Routine 06/07/2024 2:45 AM EST HEPARIN ANTI XA Routine 06/07/2024 2:45 AM EST POCT GLUCOSE BLOOD Routine 06/07/2024 12 :09 AM EST ECG 12-LEAD Routine 06/06/2024 9:13 PM EST ACTIVATED PARTIAL THROMBOPLASTIN TIME Routine 06/06/2024 7:45 PM EST HEPARIN ANTI XA Timed 06/06/2024 7:45 PM EST POCT GLUCOSE BLOOD Routine 06/06/2024 5: 50 PM EST IR INSERT NON TUNNELED CVC MORE 5YRS Routine 06/06/2024 5:06 PM EST POCT GLUCOSE BLOOD Routine 06/06/2024 11 :20 AM EST HEPARIN ANTI XA Routine 06/06/2024 9:09 AM EST POCT GLUCOSE BLOOD Routine 06/06/2024 7: 48 AM EST HEPARIN ANTI XA Timed 06/06/2024 7:26 AM EST POCT GLUCOSE BLOOD Routine 06/06/2024 1: 47 AM EST ECG 12-LEAD STAT 06/06/2024 1:43 AM EST HEPARIN ANTI XA STAT 06/06/2024 1:28 AM EST ACTIVATED PARTIAL THROMBOPLASTIN TIME STAT 06/06/2024 1:28 AM EST PROTHROMBIN TIME WITH INR STAT 06/06/2024 1:28 AM EST VAS US DUPLEX UPPER EXT VENOUS RIGHT Routine 06/06/2024 1:03 AM EST Arteriovenous fistula occlusion, initial encounter ([facility]) TROPONIN I HIGH SENSITIVITY STAT 06/05/2024 10:18 PM EST XR CHEST 1 VIEW Routine 06/05/2024 8:26 PM EST CBC WITH AUTO DIFFERENTIAL STAT 06/05/2024 8:03 PM EST CBC AND DIFFERENTIAL STAT 06/05/2024 8:03 PM EST COMPREHENSIVE METABOLIC PANEL STAT 06/05/2024 8:03 PM EST HEMOGLOBIN A1C Routine 04/15/2024 9:51 AM EST DM2 (diabetes mellitus, type 2) ([facility]) Renal failure KRYSTAL DEXA AXIAL SKELETON Routine 08/18/2021 6:12 PM EDT Encounter for screening for osteoporosis from Last 3 Months or Most Recently Relevant to Health Maintenance Results * XR Foot 3+ Views Left (07/04/2024 5:19 PM EST) Anatomical Region Laterality Modality Lower Extremities, Foot Left [facility] 07/07/2024 3:14 PM EST Impressions 07/07/2024 3:19 PM EST Impression: 1. Possible nondisplaced fracture of the proximal phalanx of the fifth digit. 2. Marked soft tissue swelling along the dorsum of the foot. [employer] PANCHO ([id number]) A [employer] message has been communicated to the office of ANGEL DENT via the [employer] System on 07/07/2024 3:19 PM, Message ID [id number]. -------- FINAL REPORT -------- Dictated By: Sherice Cullen Dictated Date: 07/07/2024 15:14 ET Assigned Physician: Sherice Cullen Reviewed and Electronically Signed By: Sherice Cullen Signed Date: 07/07/2024 15:19 ET Workstation ID: [id number] Transcribed By: Self Edit Transcribed Date: 07/07/2024 15:14 ET Narrative 07/07/2024 3:19 PM EST History: Left foot pain, redness and swelling. Comparison: No comparison imaging at this institution. Findings: AP, oblique and lateral views of the left foot. Marked soft tissue swelling is seen along the dorsum of the foot and ankle. No subcutaneous gas is seen. No retained opaque foreign body is identified. Extensive arterial calcification is present. The oblique view of the foot shows radiolucencies within the distal end of the proximal phalanx of the fifth digit raising the possibility of nondisplaced fracture. This is not confirmed on the additional views. The remainder of the included osseous structures are intact and the articular spaces are well-maintained. Posterior and plantar calcaneal spurs are noted. Procedure Note Sherice Cullen MD - 07/07/2024 History: Left foot pain, redness and swelling. Comparison: No comparison imaging at this institution. Findings: AP, oblique and lateral views of the left foot. Marked soft tissue swelling is seen along the dorsum of the foot andankle. No subcutaneous gas is seen. No retained opaque foreign body isidentified. Extensive arterial calcification is present. The oblique view of the foot shows radiolucencies within the distal end ofthe proximal phalanx of the fifth digit raising the possibility ofnondisplaced fracture. This is not confirmed on the additional views. Theremainder of the included osseous structures are intact and the articularspaces are well-maintained. Posterior and plantar calcaneal spurs arenoted. IMPRESSION: Impression: 1. Possible nondisplaced fracture of the proximal phalanx of the fifthdigit. 2. Marked soft tissue swelling along the dorsum of the foot. Rdoy DELEON () A eTec message has been communicated to the office of [facility] on 07/07/2024 3:19 PM, MessageID [id number]. -------- FINAL REPORT -------- Dictated By: Sherice Cullen Dictated Date: 07/07/2024 15:14 ET Assigned Physician: Sherice Cullen Reviewed and Electronically Signed By: Sherice Cullen Signed Date: 07/07/2024 15:19 ET Workstation ID: [id number] Transcribed By: Self Edit Transcribed Date: 07/07/2024 15:14 ET Angel Dent DO IMG XR PROCEDURES Final Resul t * XR Hand 3+ Views Right (07/04/2024 5:19 PM EST) Anatomical Region Laterality Modality Upper Extremities, Hand Right Radiogra phic Imaging 07/07/2024 3:19 PM EST Impressions 07/07/2024 3:23 PM EST Impression: 1. No acute fracture. 2. Ulnar angulation of the PIP joints of the third and fourth digits, age indeterminate. 3. Arthritic changes. Rody DELEON ([id number]) -------- FINAL REPORT -------- Dictated By: Sherice Cullen Dictated Date: 07/07/2024 15:19 ET Assigned Physician: Sherice Cullen Reviewed and Electronically Signed By: Sherice Cullen Signed Date: 07/07/2024 15:23 ET Workstation ID: [id number] Transcribed By: Self Edit Transcribed Date: 07/07/2024 15:19 ET Narrative 07/07/2024 3:23 PM EST History: Right hand pain and bruising to fingers 3 through 5. Comparison: Right wrist series 04/19/22 Findings: AP, oblique and lateral views of the right hand. Marked soft tissue swelling is seen throughout the hand and wrist. There is ulnar angulation of the third digit at the level of the PIP joint, age indeterminate. Minimal ulnar angulation of the PIP joint of the fourth digit is also noted. There is loss of joint space throughout the interphalangeal joints and through the MCP joints, with marginal osteophytes. Arterial calcifications are present. Surgical clips are again noted in the distal forearm. Procedure Note Sherice Cullen MD - 07/07/2024 History: Right hand pain and bruising to fingers 3 through 5. Comparison: Right wrist series 04/19/22 Findings: AP, oblique and lateral views of the right hand. Marked soft tissue swelling is seen throughout the hand and wrist. There is ulnar angulation of the third digit at the level of the PIPjoint, age indeterminate. Minimal ulnar angulation of the PIP joint of thefourth digit is also noted. There is loss of joint space throughout theinterphalangeal joints and through the MCP joints, with marginalosteophytes. Arterial calcifications are present. Surgical clips are again noted in thedistal forearm. IMPRESSION: Impression: 1. No acute fracture. 2. Ulnar angulation of the PIP joints of the third and fourth digits, ageindeterminate. 3. Arthritic changes. Telechristina DELEON ([id number]) -------- FINAL REPORT -------- Dictated By: Sherice Cullen Dictated Date: 07/07/2024 15:19 ET Assigned Physician: Sherice Cullen Reviewed and Electronically Signed By: Sherice Cullen Signed Date: 07/07/2024 15:23 ET Workstation ID: [id number] Transcribed By: Self Edit Transcribed Date: 07/07/2024 15:19 ET us Angel Dent DO IMG XR PROCEDURES Final Resul t * Transfuse RBC (07/04/2024 4:05 PM EST) Only the most recent of3 resultswithin the time period is included. us Osito Sinclair MD BLOOD TRANSFUSION ORDERABLES Fi nal Result * Prepare RBC: 1 Units (07/04/2024 12:39 PM EST) Only the most recent of3 resultswithin the time period is included. [facility] Signature Product Code [id number] 07/04/2024 1:37 PM [facility] Unit Number [id number] 07/04/19 1:37 PM [facility] Crossmatch Compatible 07/04/2024 12:55 PM [facility] Dispense Status Released From Crossmatch 07/04/2024 1:37 PM [facility] Unit ABO Rh OPOS 07/04/2024 1:37 PM [facility] Unit Expiration Date Time [id number] 07/04/2024 1:37 PM [facility] Unit Blood Type 5100 07/04/2024 1:37 PM [facility] Product Code [id number] 07/04/2024 2:01 PM [facility] Unit Number [id number] 07/04/19 2:01 PM [facility] Crossmatch Compatible 07/04/2024 1:33 PM [facility] Dispense Status Transfused 07/04/2024 2:01 PM [facility] Unit ABO Rh OPOS 07/04/2024 2:01 PM [facility] Unit Expiration Date Time [id number] 07/04/2024 2:01 PM [facility] Unit Blood Type 5100 07/04/2024 2:01 PM [facility] Blood Venous blood specimen / Unknown 07/04/2024 12:39 PM EST 07/04/2024 11:28 AM EST Osito Sinclair MD BLOOD BANK PRODUCT ORDERABLES F inal Result [facility] [address] [place] [address], * (ABNORMAL) CBC auto differential (07/04/2024 11:20 AM EST) Only the most recent of7 resultswithin the time period is included. WBC 7.8 4.8 - 10.8 K/mcL LAB HEMETOLOGY METHOD 07/04/2024 11:34 AM [facility] RBC 2.40(L) 3.80 - 4.80 M/mcL LAB HEMETOLOGY METHOD 07/04/2024 11:34 AM [facility] Hemoglobin 7.4(L) 11.5 - 16.0 g/dL LAB HEMETOLOGY METHOD 07/04/2024 11:34 AM [facility] Hematocrit 24.8(L) 35.0 - 47.0 % LAB HEMETOLOGY METHOD 07/04/2024 11:34 AM [facility] MCV 102.1(H) 79.0 - 98.0 FL LAB HEMETOLOGY METHOD 07/04/2024 11:34 AM [facility] MCH 30.5 27.0 - 32.0 pcg LAB HEMETOLOGY METHOD 07/04/2024 11:34 AM [facility] MCHC 29.8(L) 32.0 - 37.0 g/dL LAB HEMETOLOGY METHOD 07/04/2024 11:34 AM [facility] RDW 20.1(H) 11.0 - 15.0 % LAB HEMETOLOGY METHOD 07/04/2024 11:34 AM [facility] Platelets 193 130 - 400 K/mcL LAB HEMETOLOGY METHOD 07/04/2024 11:34 AM [facility] MPV 11.7(H) 7.0 - 11.0 FL LAB HEMETOLOGY METHOD 07/04/2024 11:34 AM [facility] NRBC 0.6 <1.0 % LAB HEMETOLOGY METHOD 07/04/2024 11:34 AM [facility] NRBC Absolute 0.05 <0.10 K/mcL LAB HEMETOLOGY METHOD 07/04/2024 11:34 AM [facility] Neutrophils Relative 73.1 % LAB HEMETOLOGY METHOD 07/04/2024 11:34 AM [facility] Lymphocytes Relative 10.7 % LAB HEMETOLOGY METHOD 07/04/2024 11:34 AM [facility] Monocytes Relative 12.0 % LAB HEMETOLOGY METHOD 07/04/2024 11:34 AM [facility] Eosinophils Relative 2.4 % LAB HEMETOLOGY METHOD 07/04/2024 11:34 AM [facility] Basophils Relative 0.5 % LAB HEMETOLOGY METHOD 07/04/2024 11:34 AM [facility] Immature Granulocytes Relative 1.3 % LAB HEMETOLOGY METHOD 07/04/2024 11:34 AM [facility] Neutrophils Absolute 5.68 1.50 - 7.00 K/mcL LAB HEMETOLOGY METHOD 07/04/2024 11:34 AM [facility] Lymphocytes Absolute 0.83(L) 1.00 - 5.00 K/mcL LAB HEMETOLOGY METHOD 07/04/2024 11:34 AM [facility] Monocytes Absolute 0.93 0.20 - 1.00 K/mcL LAB HEMETOLOGY METHOD 07/04/2024 11:34 AM [facility] Eosinophils Absolute 0.19 0.00 - 0.50 K/mcL LAB HEMETOLOGY METHOD 07/04/2024 11:34 AM EST [facility] Basophils Absolute 0.04 0.00 - 0.20 K/[facility] LAB HEMETOLOGY METHOD 07/04/2024 11:34 AM [facility] Immature Granulocytes Absolute 0.10(H) 0.00 - 0.03 K/[facility] LAB HEMETOLOGY METHOD 07/04/2024 11:34 AM EST [facility] Blood Venous blood specimen / Unknown Venipuncture / Unknown 07/04/2024 11:20 AM EST 07/04/2024 11:28 AM EST Jovon Veloz MD LAB BLOOD ORDERABLES Senait l Result Performing Organization Address City/[facility]/ZIP Co de Phone Number [facility] [address] [place] [address], [place] [phone] * Type and screen (07/04/2024 11:20 AM EST) Only the most recent of2 resultswithin the time period is included. ABO Group O 07/04/2024 12:48 PM [facility] Rh Type Positive 07/04/2024 12:48 PM [facility] Antibody Screen Negative 07/04/2024 12:48 PM EST [facility] Blood Venous blood specimen / Unknown Venipuncture / Unknown 07/04/2024 11:20 AM EST 07/04/2024 11:28 AM EST us Jovon Veloz MD LAB BLOOD BANK TEST ORDER EVAN Final Result [facility] [address] [place] [address], [place] [phone] * (ABNORMAL) Comprehensive metabolic panel (07/04/2024 11:20 AM EST) Only the most recent of2 resultswithin the time period is included. Sodium 137 133 - 145 mmol/L LAB CHEMISTRY METHOD 07/04/2024 11:59 AM [facility] Potassium 2.8(LL) 3.5 - 5.5 mmol/L LAB CHEMISTRY METHOD 07/04/2024 11:59 AM [facility] Chloride 102 96 - 110 mmol/L LAB CHEMISTRY METHOD 07/04/2024 11:59 AM [facility] CO2 29 21 - 32 mmol/L LAB CHEMISTRY METHOD 07/04/2024 11:59 AM [facility] Anion Gap 6 3 - 11 LAB CHEMISTRY METHOD 07/04/2024 11:59 AM [facility] Glucose 106(H) 70 - 100 mg/dL LAB CHEMISTRY METHOD 07/04/2024 11:59 AM [facility] BUN 14 5 - 25 mg/dL LAB CHEMISTRY METHOD 07/04/2024 11:59 AM [facility] Creatinine 2.71(H) 0.50 - 1.10 mg/dL LAB CHEMISTRY METHOD 07/04/2024 11:59 AM [facility] eGFR 18(L) >=60 mL/min/1. 73m2 LAB CHEMISTRY METHOD 07/04/2024 11:59 AM [facility] Comment:Calculation based on the??Chronic Kidney Disease Epidemiology Collaboration (CKD-EPI) equation refit??without adjustment for race. BUN/Creatinine Ratio 5.2 LAB CHEMISTRY METHOD 07/04/2024 11:59 AM [facility] Calcium 8.4(L) 8.5 - 10.5 mg/dL LAB CHEMISTRY METHOD 07/04/2024 11:59 AM [facility] AST (SGOT) 10 10 - 42 unit/L LAB CHEMISTRY METHOD 07/04/2024 11:59 AM [facility] ALT (SGPT) 13 10 - 60 unit/L LAB CHEMISTRY METHOD 07/04/2024 11:59 AM EST [facility] Alkaline Phosphatase 157(H) 42 - 121 unit/L LAB CHEMISTRY METHOD 07/04/2024 11:59 AM [facility] Total Protein 6.7 6.0 - 8.0 g/dL LAB CHEMISTRY METHOD 07/04/2024 11:59 AM [facility] Albumin 2.9(L) 3.2 - 5.0 g/dL LAB CHEMISTRY METHOD 07/04/2024 11:59 AM [facility] Total Bilirubin 0.4 0.0 - 1.4 mg/dL LAB CHEMISTRY METHOD 07/04/2024 11:59 AM [facility] Blood Venous blood specimen / Unknown Venipuncture / Unknown 07/04/2024 11:20 AM EST 07/04/2024 11:28 AM EST Jovon Veloz MD LAB BLOOD ORDERABLES Senait l Result [facility] [address] [place] [address], * [place] CRITICAL CARE 30-74 MINUTES (07/04/2024 10:52 AM EST) Narrative Osito Sinclair MD - 07/04/2024 10:52 AM EST Osito Sinclair MD ? 07/04/2024 ??4:44 PM Critical Care Performed by: Osito Sinclair MD Authorized by: Osito Sinclair MD ?? Critical care provider statement: ??Critical care time (minutes): ??45 ??Critical care time was exclusive of: ??Separately billable procedures and treating other patients ??Critical care was necessary to treat or prevent imminent or life-threatening deterioration of the following conditions: ??Renal failure (Critical anemia) ??Critical care was time spent personally by me on the following activities: ??Development of treatment plan with patient or surrogate, discussions with consultants, examination of patient, ordering and performing treatments and interventions and ordering and review of laboratory studies Osito Sinclair MD IN CLINIC/BEDSIDE ORDERABLES Fi nal Result * (ABNORMAL) POCT Glucose, blood (06/25/2024 4:10 PM EST) Only the most recent of90 resultswithin the time period is included. Glucose POCT 153(H) 70 - 100 mg/dL 06/25/2024 4:11 PM EST [facility] Blood Capillary blood specimen / Unknown 06/25/2024 4:10 PM EST 06/25/2024 4:12 PM EST us Monster Potter MD LAB POINT OF CA RE TEST DOCKED DEVICE UNSOLICITED RESULTS Final Result Performing Organization Address [facility] de Phone Number [facility] [address] [place] [address], * Anti-Xa - Every 6 Hours (06/25/2024 3:58 AM EST) Only the most recent of34 resultswithin the time period is included. Heparin Anti-Xa 0.50 0.30 - 0.70 I Unit/mL LAB COAGULATION METHOD 06/25/2024 4:29 AM EST [facility] Blood Venous blood specimen / Unknown Venipuncture / Unknown 06/25/2024 3:58 AM EST 06/25/2024 4:03 AM EST Narrative [facility] - 06/25/2024 4:29 AM EST Therapeutic range listed is for Unfractionated Heparin. LMW Heparin therapeutic range: 0.50-1.20 IU/mL us Monster Potter MD LAB BLOOD ORDERABLES Fi nal Result Performing Organization Address [facility] Co de Phone Number [facility] [address] [place] [address], * (ABNORMAL) Complete blood count (06/25/2024 3:58 AM EST) Only the most recent of13 resultswithin the time period is included. [facility] Signature WBC 14.1(H) 4.8 - 10.8 K/mcL LAB HEMETOLOGY METHOD 06/25/2024 4:24 AM [facility] RBC 2.40(L) 3.80 - 4.80 M/mcL LAB HEMETOLOGY METHOD 06/25/2024 4:24 AM [facility] Hemoglobin 7.1(L) 11.5 - 16.0 g/dL LAB HEMETOLOGY METHOD 06/25/2024 4:24 AM [facility] Hematocrit 24.2(L) 35.0 - 47.0 % LAB HEMETOLOGY METHOD 06/25/2024 4:24 AM [facility] MCV 103.0(H) 79.0 - 98.0 FL LAB HEMETOLOGY METHOD 06/25/2024 4:24 AM [facility] MCH 30.2 27.0 - 32.0 pcg LAB HEMETOLOGY METHOD 06/25/2024 4:24 AM [facility] MCHC 29.3(L) 32.0 - 37.0 g/dL LAB HEMETOLOGY METHOD 06/25/2024 4:24 AM [facility] RDW 19.2(H) 11.0 - 15.0 % LAB HEMETOLOGY METHOD 06/25/2024 4:24 AM [facility] Platelets 174 130 - 400 K/mcL LAB HEMETOLOGY METHOD 06/25/2024 4:24 AM [facility] MPV 12.7(H) 7.0 - 11.0 FL LAB HEMETOLOGY METHOD 06/25/2024 4:24 AM [facility] NRBC 0.0 <1.0 % LAB HEMETOLOGY METHOD 06/25/2024 4:24 AM EST [facility] NRBC Absolute 0.00 <0.10 K/mcL LAB HEMETOLOGY METHOD 06/25/2024 4:24 AM [facility] Blood Venous blood specimen / Unknown Venipuncture / Unknown 06/25/2024 3:58 AM EST 06/25/2024 4:03 AM EST us Ladarius Paniagua MD LAB BLOOD ORDERABLES Final Re sult [facility] [address] [place] [address], [place] [phone] * (ABNORMAL) Basic metabolic panel (06/25/2024 3:58 AM EST) Only the most recent of20 resultswithin the time period is included. Sodium 131(L) 133 - 145 mmol/L LAB CHEMISTRY METHOD 06/25/2024 7:04 AM [facility] Potassium 4.9 3.5 - 5.5 mmol/L LAB CHEMISTRY METHOD 06/25/2024 7:04 AM [facility] Chloride 94(L) 96 - 110 mmol/L LAB CHEMISTRY METHOD 06/25/2024 7:04 AM [facility] CO2 30 21 - 32 mmol/L LAB CHEMISTRY METHOD 06/25/2024 7:04 AM [facility] Anion Gap 7 3 - 11 LAB CHEMISTRY METHOD 06/25/2024 7:04 AM [facility] Glucose 136(H) 70 - 100 mg/dL LAB CHEMISTRY METHOD 06/25/2024 7:04 AM [facility] BUN 46(H) 5 - 25 mg/dL LAB CHEMISTRY METHOD 06/25/2024 7:04 AM [facility] Creatinine 4.93(H) 0.50 - 1.10 mg/dL LAB CHEMISTRY METHOD 06/25/2024 7:04 AM [facility] eGFR 9(L) >=60 mL/min/1. 73m2 LAB CHEMISTRY METHOD 06/25/2024 7:04 AM EST [facility] Comment:Calculation based on the??Chronic Kidney Disease Epidemiology Collaboration (CKD-EPI) equation refit??without adjustment for race. BUN/Creatinine Ratio 9.3 LAB CHEMISTRY METHOD 06/25/2024 7:04 AM EST [facility] Calcium 8.7 8.5 - 10.5 mg/dL LAB CHEMISTRY METHOD 06/25/2024 7:04 AM EST [facility] Blood Venous blood specimen / Unknown Venipuncture / Unknown 06/25/2024 3:58 AM EST 06/25/2024 4:03 AM EST us Ladarius Paniagua MD LAB BLOOD ORDERABLES Final Re sult [facility] [address] [place] [address], * IR Venogram Upper Extremity Right (06/23/2024 5:05 PM EST) Anatomical Region Laterality Modality Upper Extremities Right Interventional Radiology 06/25/2024 9:47 AM EST Impressions 06/25/2024 10:20 AM EST Right upper extremity venogram with focal nonobstructive thrombus along the distal right upper basilic vein. 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 Mechanical thrombectomy utilizing clot retriever device with removal of a moderate amount of chronic appearing thrombus from the subclavian vein as well as upper basilic vein. Central venous stenosis balloon dilation followed by stent placement and then post stent placement balloon dilatation performed as detailed above with excellent angiographic result. Mild residual narrowing noted along the stent is an expected finding. Prompt flow through the stent into the SVC established. 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 Both ultrasound and CT imaging of the right upper extremity concerning for thrombus within the right internal jugular vein, external jugular vein as well as right subclavian vein. Partial thrombus noted in upper brachial vein on initial study from June 06, 2024 however not well visualized on study from November 12, 2024. Patient did not demonstrate any significant improvement on intravenous heparin. PROCEDURE: Right upper extremity and central venography with mechanical thrombectomy as well as central venous angioplasty and stent placement. prior relevant studies: Multiple recent CT scans of the neck and chest and ultrasound studies of the right upper extremity. MEDICATIONS: Local anesthesia: 8 cc of 1% buffered lidocaine administered subcutaneously. Sedation: Sedation provided by anesthesia services. Total patient dose (air kerma): 417 mGy TECHNIQUE/FINDINGS: Informed consent was obtained from the healthcare proxy which is one of the patient's daughters (Elle). Patient placed supine on the angiographic table and right upper arm access site evaluate under real-time ultrasound. Large vein in the more inferior medial aspect of the right arm noted most likely representing a basilic vein localized for access. This region was marked, draped and prepped sterilely. Timeout was performed as per hospital protocol acknowledged by the staff present. Under ultrasound guidance micropuncture access obtained into the localized vein with placement of a 10 Libyan sheath. Venography performed of the right upper extremity demonstrating nonobstructing thrombus within the upper basilic vein. Central venography demonstrates subclavian thrombus with multiple collateral vessels with minimal amount opacification of the right innominate vein. High-grade stenosis faintly visualized between the subclavian vein and right innominate vein. Follow-up venogram demonstrates improved luminal diameter of the stenosis. Sheath was upgraded up to 13 Libyan. The Inari clot retriever device was then advanced under fluoroscopy and deployed with the coring device located in the upper SVC. The clot retriever device was then retracted and removed with a significant amount of whitish fibrinous-appearing clot extracted. Follow-up sonography demonstrates decreased but residual thrombus along the subclavian vein with resultant nonobstructive thrombus along the upper basilic vein. Subsequent dilatation performed with 10 mm balloon by 4 cm balloon with follow- up venography demonstrating further mild improvement in residual stenosis. Placement of 13 mm x 5 cm Viabahn stent with subsequent post stent placement dilatation utilizing a 10 mm x 4 mm balloon. Follow-up sonography demonstrates prompt flow from the axillary vein through the stent into the SVC with significant residual filling of collaterals. Residual mild to moderate stenosis noted along the mid stent. Also residual thrombus noted just proximal to the stent. Overlapping 13 mm x 5 mm and placed more proximally covering this residual thrombus. Subsequent angioplasty with 12 mm x 20 mm balloon along the complete course of the stents. Final venography performed demonstrating only mild residual narrowing noted, improved from the post 10 mm balloon imaging. Prompt flow noted from the axillary vein through the stent into the SVC. Residual thrombus noted within the right subclavian vein no longer appreciated. 13 Libyan sheath was then removed with placement of a pursestring 2-0 proline suture securing a external hemostasis device. Procedure Note Nena Olivares MD - 06/25/2024 INDICATION: Persistent right arm swelling secondary to central venousthrombosis. History of right sided facets fistula proven to be patent onultrasound analysis. Both ultrasound and CT imaging of the right upperextremity concerning for thrombus within the right internal jugular vein,external jugular vein as well as right subclavian vein. Partial thrombusnoted in upper brachial vein on initial study from June 06, 2024 howevernot well visualized on study from November 12, 2024. Patient did notdemonstrate any significant improvement on intravenous heparin. PROCEDURE: Right upper extremity and central venography with mechanicalthrombectomy as well as central venous angioplasty and stent placement. prior relevant studies: Multiple recent CT scans of the neck and chest andultrasound studies of the right upper extremity. MEDICATIONS: Local anesthesia: 8 cc of 1% buffered lidocaine administeredsubcutaneously. Sedation: Sedation provided by anesthesia services. Total patient dose (air kerma): 417 mGy TECHNIQUE/FINDINGS: Informed consent was obtained from the healthcareproxy which is one of the patient's daughters (Elle). Patient placed supine on the angiographic table and right upper arm accesssite evaluate under real-time ultrasound. Large vein in the more inferiormedial aspect of the right arm noted most likely representing a basilicvein localized for access. This region was marked, draped and preppedsterilely. Timeout was performed as per hospital protocol acknowledged by the staffpresent. Under ultrasound guidance micropuncture access obtained into the localizedvein with placement of a 10 Libyan sheath. Venography performed of theright upper extremity demonstrating nonobstructing thrombus within theupper basilic vein. Central venography demonstrates subclavian thrombus with multiplecollateral vessels with minimal amount opacification of the rightinnominate vein. High-grade stenosis faintly visualized between thesubclavian vein and right innominate vein. Follow- up venogram demonstratesimproved luminal diameter of the stenosis. Sheath was upgraded up to 13 Libyan. The Inari clot retriever device wasthen advanced under fluoroscopy and deployed with the coring devicelocated in the upper SVC. The clot retriever device was then retracted andremoved with a significant amount of whitish fibrinous-appearing clotextracted. Follow-up sonography demonstrates decreased but residual thrombus alongthe subclavian vein with resultant nonobstructive thrombus along the upperbasilic vein. Subsequent dilatation performed with 10 mm balloon by 4 cm balloon withfollow-up venography demonstrating further mild improvement in residualstenosis. Placement of 13 mm x 5 cm Viabahn stent with subsequent post stentplacement dilatation utilizing a 10 mm x 4 mm balloon. Follow-upsonography demonstrates prompt flow from the axillary vein through thestent into the SVC with significant residual filling of collaterals.Residual mild to moderate stenosis noted along the mid stent. Alsoresidual thrombus noted just proximal to the stent. Overlapping 13 mm x 5mm and placed more proximally covering this residual thrombus. Subsequentangioplasty with 12 mm x 20 mm balloon along the complete course of thestents. Final venography performed demonstrating only mild residual narrowingnoted, improved from the post 10 mm balloon imaging. Prompt flow notedfrom the axillary vein through the stent into the SVC. Residual thrombusnoted within the right subclavian vein no longer appreciated. 13 Libyan sheath was then removed with placement of a pursestring 2-0proline suture securing a external hemostasis device. IMPRESSION: Right upper extremity venogram with focal nonobstructive thrombus alongthe distal right upper basilic vein. Central venography with subclavian thrombus and high-grade central venousstenosis between the right subclavian vein and innominate vein. Mechanical thrombectomy utilizing clot retriever device with removal of amoderate amount of chronic appearing thrombus from the subclavian vein aswell as upper basilic vein. Central venous stenosis balloon dilation followed by stent placement andthen post stent placement balloon dilatation performed as detailed abovewith excellent angiographic result. Mild residual narrowing noted alongthe stent is an expected finding. Prompt flow through the stent into theSVC established. -------- FINAL REPORT -------- Dictated By: Nena Olivares Dictated Date: 06/25/2024 09:47 ET Assigned Physician: Nena Olivares Reviewed and Electronically Signed By: Nena Olivares Signed Date: 06/25/2024 10:20 ET Workstation ID: [id number] Transcribed By: Self Edit Transcribed Date: 06/25/2024 09:47 ET Nena Olivares MD IMG IR PROCEDURES Final Result * (ABNORMAL) POCT activated clotting time,kaolin (06/23/2024 4:10 PM EST) Activated Clotting Time Kaolin 181(H) 74 - 137 sec 06/24/2024 6:51 AM EST [facility] Blood Venous blood specimen / Unknown 06/23/2024 4:10 PM EST 06/24/2024 6:52 AM EST Monster Potter MD LAB POINT OF CA RE TEST DOCKED DEVICE UNSOLICITED RESULTS Final Result [facility]) [facility] [address] [place] [address], * TH AN LMA(NO CHARGE) (06/23/2024 3:10 PM EST) Narrative Jacquie De Oliveira CRNA - 06/23/2024 3:10 PM EST Jacquie De Oliveira CRNA ? 06/23/2024 ??3:12 PM General Information and Staff Patient location during procedure: OR Performed by: Jacquie De Oliveira CRNA Authorized by: Conrad Troy, DO ?? Intubation Additional Comments Inserted LMA without touching right bottom loose tooth. Urgency: elective Final Airway Details Number of attempts at approach: 1 Ventilation between attempts: none Number of other approaches attempted: 0Final airway type: LMA Indications and Patient Condition Indications for airway management: anesthesia Sedation level: Yes Preoxygenated: yes Soft Tissue Damage: No Dentition Unchanged: Yes Patient position: neutral MILS not maintained throughout Mask difficulty assessment: 0 - not attempted Start Time: 06/23/2024 2:59 PMStop Time: 06/23/2024 2:59 PM us Conrad Troy DO ANESTHESIA ORDERABLES Final Result * ECG-Annotated (06/23/2024) us Provider Onbase ECG ORDERABLES Final Result * SST tube (06/19/2024 7:02 AM EST) Extra Tube Hold for add-ons. 06/19/2024 9:01 AM EST [facility] Comment:Auto resulted. Blood Venous blood specimen / Unknown Venipuncture / Unknown 06/19/2024 7:02 AM EST 06/19/2024 7:09 AM EST Ladarius Paniagua MD LAB BLOOD ORDERABLES Final Re sult [facility] [address] [place] [address], * Vascular US duplex lower extremity venous left (06/16/2024 7:25 PM EST) Anatomical Region Laterality Modality Vascular, Abdomen Ultrasound 06/17/2024 3:26 AM EST Impressions 06/17/2024 3:27 AM EST No deep vein thrombosis identified in the left lower extremity veins -------- FINAL REPORT -------- Dictated By: Kavita Moralez Dictated Date: 06/17/2024 03:26 ET Assigned Physician: Kavita Moralez Reviewed and Electronically Signed By: Kavita Moralez Signed Date: 06/17/2024 03:27 ET Workstation ID: [id number] Transcribed By: Self Edit Transcribed Date: 06/17/2024 03:26 ET Narrative 06/17/2024 3:27 AM EST INDICATION: DVT Hx edema COMPARISON: None TECHNIQUE: Ultrasound of the ??left lower extremity veins is performed using color-flow Doppler, graded compression with B mode Doppler with spectral analysis FINDINGS: The common femoral, superficial femoral and popliteal veins compress normally throughout their length. Normal response to distal augmentation is seen with calf compression. Included calf vessels are patent on color Doppler. Procedure Note Kavita Moralez MD - 06/17/2024 INDICATION: DVT Hx edema COMPARISON: None TECHNIQUE: Ultrasound of the left lower extremity veins is performedusing color- flow Doppler, graded compression with B mode Doppler withspectral analysis FINDINGS: The common femoral, superficial femoral and popliteal veinscompress normally throughout their length. Normal response to distalaugmentation is seen with calf compression. Included calf vessels arepatent on color Doppler. IMPRESSION: No deep vein thrombosis identified in the left lower extremity veins -------- FINAL REPORT -------- Dictated By: Kavita Moralez Dictated Date: 06/17/2024 03:26 ET Assigned Physician: Kavita Moralez Reviewed and Electronically Signed By: Kavita Moralez Signed Date: 06/17/2024 03:27 ET Workstation ID: [id number] Transcribed By: Self Edit Transcribed Date: 06/17/2024 03:26 ET Ladarius Paniagua MD CV VASCULAR PROCEDURES Final Result * (ABNORMAL) Activated Partial Thromboplastin Time - STAT (06/16/2024 1:08 PM EST) Only the most recent of3 resultswithin the time period is included. aPTT 23.2(L) 24.1 - 39.3 sec LAB COAGULATION METHOD 06/16/2024 2:21 PM EST [facility] Blood Venous blood specimen / Unknown Existing Catheter / Unknown 06/16/2024 1:08 PM EST 06/16/2024 1:58 PM EST us Ladarius Paniagua MD LAB BLOOD ORDERABLES Final Re sult Performing Organization Address [facility] Co de Phone Number [facility] [address] [place] [address], [place] [phone] * (ABNORMAL) Prothrombin Time with INR - STAT (06/16/2024 1:08 PM EST) Only the most recent of2 resultswithin the time period is included. Protime 10.4(L) 10.6 - 13.9 sec LAB COAGULATION METHOD 06/16/2024 2:21 PM EST [facility] INR 0.8 LAB COAGULATION METHOD 06/16/2024 2:21 PM EST [facility] Blood Venous blood specimen / Unknown Existing Catheter / Unknown 06/16/2024 1:08 PM EST 06/16/2024 1:58 PM EST us Ladarius Paniagua MD LAB BLOOD ORDERABLES Final Re sult Performing Organization Address [facility]/ZIP Co de Phone Number [facility] [address] [place] [address], [place] [phone] * CT Neck Soft Tissue w Contrast (06/16/2024 10:59 AM EST) Anatomical Region Laterality Modality Head and Neck Computed Tomogra phy 06/16/2024 11:0 7 AM EST Impressions 06/16/2024 11:17 AM EST 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 ??Extensive soft tissue edema throughout the right axillary region and right upper chest. ??Correlate for SVC syndrome. Right level 4 lymphadenopathy may be reactive or metastatic. Right upper paratracheal nodule may reflect exophytic thyroid nodule versus upper mediastinal lymphadenopathy. Findings communicated to the ordering provider via [employer] at time of final report signing -------- FINAL REPORT -------- Dictated By: ADÁN FRASER Dictated Date: 06/16/2024 11:07 ET Assigned Physician: ADÁN FRASER Reviewed and Electronically Signed By: ADÁN FRASER Signed Date: 06/16/2024 11:17 ET Workstation ID: [id number] Transcribed By: Self Edit Transcribed Date: 06/16/2024 11:07 ET Narrative 06/16/2024 11:17 AM EST PROCEDURE: Neck CT INDICATION: neck adenopathy; TECHNIQUE: Neck CT with intravenous administration of 90cc ISOVUE-370. Multi planar reformats were created and interpreted. The examination was performed utilizing dose reduction techniques. ??Total DLP 404 COMPARISON: ??No priors available. FINDINGS: There is right level 4 lymphadenopathy measuring up to 25 mm short axis. ??Right level 3 lymph node measures 9 mm short axis. Right paratracheal nodule measures 22 mm short axis, possibly an exophytic thyroid nodule versus upper mediastinal lymphadenopathy. ??Thyroid gland is diffusely heterogeneous. No surface mucosal lesion along the aerodigestive tract. ??No peritonsillar or retropharyngeal fluid collection. There is occlusive and nonocclusive thrombus in the right subclavian and internal jugular veins with severe narrowing of the SVC. Major arterial structures opacify normally with contrast. Visualized intracranial structures are within normal limits. Bilateral lens implants. ??Orbits, sinuses, and mastoids are otherwise normal. Parotid and submandibular glands are normal. Bones are normal for age. ??Paraspinal muscles are normal. ??Severe edema throughout the soft tissues in the right axillary region and upper chest. Procedure Note Adán Fraser MD - 06/16/2024 PROCEDURE: Neck CT INDICATION: neck adenopathy; TECHNIQUE: Neck CT with intravenous administration of 90cc ISOVUE-370.Multi planar reformats were created and interpreted. The examination wasperformed utilizing dose reduction techniques. Total DLP 404 COMPARISON: No priors available. FINDINGS: There is right level 4 lymphadenopathy measuring up to 25 mm short axis.Right level 3 lymph node measures 9 mm short axis. Right paratracheal nodule measures 22 mm short axis, possibly an exophyticthyroid nodule versus upper mediastinal lymphadenopathy. Thyroid gland isdiffusely heterogeneous. No surface mucosal lesion along the aerodigestive tract. No peritonsillaror retropharyngeal fluid collection. There is occlusive and nonocclusive thrombus in the right subclavian andinternal jugular veins with severe narrowing of the SVC. Major arterial structures opacify normally with contrast. Visualized intracranial structures are within normal limits. Bilateral lens implants. Orbits, sinuses, and mastoids are otherwisenormal. Parotid and submandibular glands are normal. Bones are normal for age. Paraspinal muscles are normal. Severe edemathroughout the soft tissues in the right axillary region and upperchest. IMPRESSION: Severe narrowing of the SVC with occlusive and nonocclusive thrombus inthe right internal jugular and subclavian veins. Extensive soft tissueedema throughout the right axillary region and right upper chest.Correlate for SVC syndrome. Right level 4 lymphadenopathy may be reactive or metastatic. Right upper paratracheal nodule may reflect exophytic thyroid noduleversus upper mediastinal lymphadenopathy. Findings communicated to the ordering provider via [employer] at timeof final report signing -------- FINAL REPORT -------- Dictated By: ADÁN FRASER Dictated Date: 06/16/2024 11:07 ET Assigned Physician: ADÁN FRASER Reviewed and Electronically Signed By: ADÁN FRASER Signed Date: 06/16/2024 11:17 ET Workstation ID: [id number] Transcribed By: Self Edit Transcribed Date: 06/16/2024 11:07 ET us Ladarius Paniagua MD IM CT PROCEDURES Final Resul t * Vascular US duplex upper extremity venous right (06/14/2024 9:21 AM EST) Only the most recent of2 resultswithin the time period is included. 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 -------- FINAL REPORT -------- Dictated By: Mauro Ventura Dictated Date: 06/14/2024 09:33 ET Assigned Physician: Mauro Ventura Reviewed and Electronically Signed By: Mauro Ventura Signed Date: 06/14/2024 09:36 ET Workstation ID: [id number] Transcribed By: Self Edit Transcribed Date: 06/14/2024 09:33 ET Narrative 06/14/2024 9:36 AM EST Ultrasound duplex venous study right upper extremity TECHNIQUE: Grayscale and color imaging with spectral analysis was performed of the region of interest INDICATION: Evaluate for venous thrombosis and evaluate arteriovenous graft for patency. COMPARISON: None FINDINGS: Visualized portions of the right internal jugular vein all appear occluded with thrombosis. ??Subclavian vein appears patent. ??Axillary vein is patent. Brachial vein appears patent throughout. ??Basilic vein appears patent throughout. ??Cephalic vein appears patent throughout. AV fistula is identified in the right forearm. ??There appears to be a small region of partial thrombosis measuring 2 cm. ??However, there does appear to be patency through this region of the graft. Procedure Note Mauro Ventura MD - 06/14/2024 Ultrasound duplex venous study right upper extremity TECHNIQUE: Grayscale and color imaging with spectral analysis wasperformed of the region of interest INDICATION: Evaluate for venous thrombosis and evaluate arteriovenousgraft for patency. COMPARISON: None FINDINGS: Visualized portions of the right internal jugular vein all appear occludedwith thrombosis. Subclavian vein appears patent. Axillary vein ispatent. Brachial vein appears patent throughout. Basilic vein appears patentthroughout. Cephalic vein appears patent throughout. AV fistula is identified in the right forearm. There appears to be asmall region of partial thrombosis measuring 2 cm. However, there doesappear to be patency through this region of the graft. 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 -------- FINAL REPORT -------- Dictated By: Mauro Ventura Dictated Date: 06/14/2024 09:33 ET Assigned Physician: Mauro Ventura Reviewed and Electronically Signed By: Mauro Ventura Signed Date: 06/14/2024 09:36 ET Workstation ID: [id number] Transcribed By: Self Edit Transcribed Date: 06/14/2024 09:33 ET Monster Potter MD CV VASCULAR PROCEDURES Final Result * (ABNORMAL) Manual differential (06/14/2024 6:59 AM EST) Neutrophils % 89.0 % LAB HEMETOLOGY METHOD 5 8:50 AM [facility] Lymphocytes % 7.0 % LAB HEMETOLOGY METHOD 5 8:50 AM [facility] Monocytes % 4.0 % LAB HEMETOLOGY METHOD 5 8:50 AM [facility] Eosinophils % 0.0 % LAB HEMETOLOGY METHOD 5 8:50 AM [facility] Basophils % 0.0 % LAB HEMETOLOGY METHOD 5 8:50 AM [facility] Metamyelocytes % 1.0(H) % LAB HEMETOLOGY METHOD 5 8:50 AM [facility] Neutrophils Absolute Manual 7.83(H) 1.50 - 7.00 K/mcL LAB HEMETOLOGY METHOD 5 8:50 AM [facility] Lymphocytes Absolute 0.62(L) 1.00 - 5.00 K/mcL LAB HEMETOLOGY METHOD 5 8:50 AM [facility] Monocytes Absolute Manual 0.35 0.20 - 1.00 K/mcL LAB HEMETOLOGY METHOD 5 8:50 AM [facility] Eosinophils Absolute Manual 0.00 0.00 - 0.50 K/mcL LAB HEMETOLOGY METHOD 5 8:50 AM [facility] Basophils Absolute Manual 0.00 0.00 - 0.20 K/mcL LAB HEMETOLOGY METHOD 5 8:50 AM EST [facility] Metamyelocytes Absolute Manual 0.09(H) 0.00 - 0.00 K/mcL LAB HEMETOLOGY METHOD 5 8:50 AM EST [facility] Rbc Morphology Consistent with indices Consistent with indices, Normal for LAB HEMETOLOGY METHOD 5 8:50 AM EST [facility] Platelet Morphology - WAM See Note(A) Normal [facility] AM EST [facility] Comment:PLT: Normal Blood Venous blood specimen / Unknown Venipuncture / Unknown 06/14/2024 6:59 AM EST 06/14/2024 7:11 AM EST us Monster Potter MD LAB BLOOD ORDERABLES Fi nal Result Performing Organization Address City/[facility]/ZIP Co de Phone Number [facility] [address] [place] [address], [place] [phone] * Phosphorus (06/14/2024 6:59 AM EST) Only the most recent of3 resultswithin the time period is included. Phosphorus 3.7 2.5 - 4.5 mg/dL LAB CHEMISTRY METHOD 06/14/2024 8:16 AM EST [facility] Blood Venous blood specimen / Unknown Venipuncture / Unknown 06/14/2024 6:59 AM EST 06/14/2024 7:11 AM EST us Monster Potter MD LAB BLOOD ORDERABLES Fi nal Result [facility] [address] [place] [address], [place] [phone] * Magnesium (06/14/2024 6:59 AM EST) Only the most recent of3 resultswithin the time period is included. Magnesium 2.0 1.9 - 2.6 mg/dL LAB CHEMISTRY METHOD 06/14/2024 8:16 AM EST [facility] Blood Venous blood specimen / Unknown Venipuncture / Unknown 06/14/2024 6:59 AM EST 06/14/2024 7:11 AM EST Monster Potter MD LAB BLOOD ORDERABLES Fi nal Result [facility] [address] [place] [address], [place] [phone] * XR Knee 1-2 Views Left (06/12/2024 4:19 PM EST) Anatomical Region Laterality Modality Lower Extremities, Knee Left Radiogra phic Imaging 06/13/2024 7:46 AM EST Impressions 06/13/2024 7:47 AM EST No fracture or dislocation. ??Very mild osteoarthritis. ??There is a small suprapatellar joint effusion. Code 79825 -------- FINAL REPORT -------- Dictated By: Mata Sims Dictated Date: 06/13/2024 07:46 ET Assigned Physician: Mata Sims Reviewed and Electronically Signed By: Mata Sims Signed Date: 06/13/2024 07:47 ET Workstation ID: [id number] Transcribed By: Self Edit Transcribed Date: 06/13/2024 07:46 ET Narrative 06/13/2024 7:47 AM EST HISTORY: The patient is a 79-year-old female with left knee pain. FINDINGS: Limited examination of the left knee, consisting of AP and lateral radiographs only, are obtained. ??The study demonstrates no fracture or dislocation. ??There is peaking of the medial tibial spine and a small osteophyte arises from the upper pole of the patella, consistent with very mild osteoarthritis. ??A small suprapatellar joint effusion is present. Procedure Note Mata Sims MD - 06/13/2024 HISTORY: The patient is a 79-year-old female with left knee pain. FINDINGS: Limited examination of the left knee, consisting of AP andlateral radiographs only, are obtained. The study demonstrates nofracture or dislocation. There is peaking of the medial tibial spine tania small osteophyte arises from the upper pole of the patella, consistentwith very mild osteoarthritis. A small suprapatellar joint effusion ispresent. IMPRESSION: No fracture or dislocation. Very mild osteoarthritis. There is a smallsuprapatellar joint effusion. Code 57120 -------- FINAL REPORT -------- Dictated By: Mata Sims Dictated Date: 06/13/2024 07:46 ET Assigned Physician: Mata Sims Reviewed and Electronically Signed By: Mata Sims Signed Date: 06/13/2024 07:47 ET Workstation ID: [id number] Transcribed By: Self Edit Transcribed Date: 06/13/2024 07:46 ET Monster Potter MD IMG XR PROCEDURES Final Result * CT Angio Chest wo and/or w Contrast (06/11/2024 4:00 PM EST) Anatomical Region Laterality Modality Body Computed Tomogra phy 06/11/2024 4:51 PM EST Impressions 06/11/2024 5:03 PM EST Large right chest hematoma without active extravasation or pseudoaneurysm. Similar right upper lobe pulmonary nodules. Similar right upper mediastinal lymphadenopathy with new lower cervical lymphadenopathy especially on the right side. -------- FINAL REPORT -------- Dictated By: Nena Olivares Dictated Date: 06/11/2024 16:51 ET Assigned Physician: Nena Olivares Reviewed and Electronically Signed By: Nena Olivares Signed Date: 06/11/2024 17:03 ET Workstation ID: [id number] Transcribed By: Self Edit Transcribed Date: 06/11/2024 16:51 ET Narrative 06/11/2024 5:03 PM EST INDICATION: Enlarging right chest wall hematoma Technique: CTA performed of the chest using pulmonary angiographic protocol with a total of 90 mL of Isovue-370 intravenously without incident. 3D multiplanar reconstructions performed on a computer workstation. Scanner: [employer] frontier 128 slice VCT Dose reduction technique: ASIR (Adaptive statistical iterative reconstruction) and/or AEC (automated exposure control) Dose: total exam DLP 712 mGY per cm Comparison: Noncontrast study of the chest from September 03, 2022 4 reviewed. Chest CTA from October 02, 2022 reviewed. FINDINGS: Pulmonary artery: Main, right, left, lobar, segmental and subsegmental pulmonary arteries are well-opacified and normal in course and caliber. No pulmonary emboli. Limited evaluation of the subsegmental vessels. Thoracic aorta demonstrate mild atherosclerotic changes. Trachea and esophagus are unremarkable. The heart is normal in size and shape. No pericardial effusions. Right upper mediastinal lymphadenopathy measuring 2.8 cm is similar to the prior study. Bilateral lower cervical lymphadenopathy suspected. Lung mac are mildly hypoinflated. No pneumothorax or large pleural effusions. Similar nodular changes in the right upper lobe measuring up to 1.7 cm. Bony structures are grossly unremarkable. Large right-sided chest wall soft tissue hematoma located laterally measures approximately 11 cm x 10 cm x 6 cm. Fluid fluid level noted within the hematoma. No active extravasation. No evidence of pseudoaneurysm. Left chest wall tunneled dialysis catheter is well-positioned with the tip at the cavoatrial junction. Procedure Note Nena Olivares MD - 06/11/2024 INDICATION: Enlarging right chest wall hematoma Technique: CTA performed of the chest using pulmonary angiographicprotocol with a total of 90 mL of Isovue-370 intravenously withoutincident. 3D multiplanar reconstructions performed on a computerworkstation. Scanner: [employer] frontier 128 slice VCT Dose reduction technique: ASIR (Adaptive statistical iterativereconstruction) and/or AEC (automated exposure control) Dose: total exam DLP 712 mGY per cm Comparison: Noncontrast study of the chest from September 03, 2022 4 reviewed.Chest CTA from October 02, 2022 reviewed. FINDINGS: Pulmonary artery: Main, right, left, lobar, segmental and subsegmentalpulmonary arteries are well-opacified and normal in course and caliber. Nopulmonary emboli. Limited evaluation of the subsegmental vessels. Thoracic aorta demonstrate mild atherosclerotic changes. Trachea and esophagus are unremarkable. The heart is normal in size andshape. No pericardial effusions. Right upper mediastinal lymphadenopathy measuring 2.8 cm is similar to theprior study. Bilateral lower cervical lymphadenopathy suspected. Lung mac are mildly hypoinflated. No pneumothorax or large pleuraleffusions. Similar nodular changes in the right upper lobe measuring up to1.7 cm. Bony structures are grossly unremarkable. Large right-sided chest wall soft tissue hematoma located laterallymeasures approximately 11 cm x 10 cm x 6 cm. Fluid fluid level notedwithin the hematoma. No active extravasation. No evidence ofpseudoaneurysm. Left chest wall tunneled dialysis catheter is well-positioned with the tipat the cavoatrial junction. IMPRESSION: Large right chest hematoma without active extravasation orpseudoaneurysm. Similar right upper lobe pulmonary nodules. Similar right upper mediastinal lymphadenopathy with new lower cervicallymphadenopathy especially on the right side. -------- FINAL REPORT -------- Dictated By: Nena Olivares Dictated Date: 06/11/2024 16:51 ET Assigned Physician: Nena Olivares Reviewed and Electronically Signed By: Nena Olivares Signed Date: 06/11/2024 17:03 ET Workstation ID: [id number] Transcribed By: Self Edit Transcribed Date: 06/11/2024 16:51 ET Angelia DELEON IMG CT PROCEDURES Final Resul t * (ABNORMAL) Hemoglobin and hematocrit (06/10/2024 9:13 PM EST) Hemoglobin 6.9(L) 11.5 - 16.0 g/dL LAB HEMETOLOGY METHOD 06/10/2024 9:44 PM EST [facility] Hematocrit 21.7(L) 35.0 - 47.0 % LAB HEMETOLOGY METHOD 06/10/2024 9:44 PM EST [facility] Blood Venous blood specimen / Unknown Venipuncture / Unknown 06/10/2024 9:13 PM EST 06/10/2024 9:38 PM EST Monster Potter MD LAB BLOOD ORDERABLES Fi nal Result [facility] [address] [place] [address], * CT Abdomen Pelvis wo Contrast (06/10/2024 5:58 PM EST) Anatomical Region Laterality Modality Body Computed Tomogra phy 06/10/2024 6:14 PM EST Addenda Addendum by Martín De Jesus MD on 06/10/2024 6:40 PM EST ADDENDUM: Addendum: Additional impression would include right adrenal nodule as described above. This document has been electronically signed by: Martín De Jesus MD on 06/10/2024 18:40:06 Impressions 06/10/2024 6:14 PM EST Impression: 1. Large incompletely imaged collections overlying right anterolateral chest wall, most compatible with multiple hematomas and surrounding contusion of the right chest wall. 2. No acute traumatic intra-abdominal or intrapelvic abnormality. 3. Multiple bilateral renal cysts and indeterminate hypodensities, likely mildly hyperdense cysts. Significant bilateral renal atrophy.. This document has been electronically signed by: Martín De Jesus MD on 06/10/2024 18:14:07 Narrative 06/10/2024 6:14 PM EST Exam: Unenhanced CT abdomen and pelvis with multiplanar reformats. Comparison: No priors available for comparison. Findings: CT abdomen: Lung bases reveal minimal bilateral atelectasis. Visualized lower chest wall reveals multiple circumscribed collections involving the right lower anterolateral chest wall, with collections revealing layering hyperdense fluid measuring up to 60 Hounsfield units, the 2 largest collections are partially imaged measuring up to 7.1 and 6.3 cm maximal dimension (3; 1), with surrounding stranding, findings compatible with chest wall hematoma/contusions, inferior to right breast. Liver appears intact and free of focal lesions and ductal dilatation. Gallbladder is unremarkable. Spleen is unremarkable. Pancreas and left adrenal gland appear unremarkable. Right adrenal gland reveals a heterogeneous indeterminate density nodule measuring 3.3 x 2.5 cm (3; 49, 51 Hounsfield units). Kidneys reveal multiple bilateral renal cysts and indeterminate density collections, likely mildly hyperdense cysts (for example, right renal upper pole likely hyperdense cyst measuring 4.9 cm and 25 Hounsfield units on 3; 57), and right renal likely hyperdense cyst measuring up to 5.9 cm and 24 Hounsfield units density on 3; 68). Additional smaller likely cysts and indeterminate density renal lesions or nodules are present. There is significant renal atrophy bilaterally, left worse than right. No hydroureteronephrosis. No free intraperitoneal fluid or retroperitoneal masses or adenopathy. Abdominal aorta is normal caliber with omgb-ry-sqleopag calcific athero sclerosis. Bowel loops reveal no abnormal wall thickening or distention. Colonic diverticulosis is present, without CT evidence of diverticulitis. The appendix is unremarkable. CT pelvis: Uterus is surgically absent. Urinary bladder is nondistended. No pelvic masses, fluid or adenopathy. Osseous structures reveal no fractures or traumatic malalignment. No destructive osseous lesions. Procedure Note Martín De Jesus MD - 06/10/2024 Exam: Unenhanced CT abdomen and pelvis with multiplanar reformats. Comparison: No priors available for comparison. Findings: CT abdomen: Lung bases reveal minimal bilateral atelectasis. Visualized lower chest wall reveals multiple circumscribed collections involvingthe right lower anterolateral chest wall, with collections revealinglayering hyperdense fluid measuring up to 60 Hounsfield units, the 2 largest collections are partially imaged measuring up to 7.1 and 6.3 cm maximal dimension (3; 1), with surrounding stranding, findings compatible with chest wall hematoma/contusions, inferior to right breast. Liver appears intact and free of focal lesions and ductal dilatation. Gallbladder is unremarkable. Spleen is unremarkable. Pancreas and left adrenal gland appear unremarkable. Right adrenal gland reveals a heterogeneous indeterminate density nodule measuring 3.3 x 2.5 cm (3;49, 51 Hounsfield units). Kidneys reveal multiple bilateral renal cysts and indeterminate density collections, likely mildly hyperdense cysts (for example, right renal upper pole likely hyperdense cyst measuring 4.9 cm and 25 Hounsfieldunits on 3; 57), and right renal likely hyperdense cyst measuring up to 5.9 cm and 24 Hounsfield units density on 3; 68). Additional smaller likelycysts and indeterminate density renal lesions or nodules are present. There is significant renal atrophy bilaterally, left worse than right. No hydroureteronephrosis. No free intraperitoneal fluid or retroperitoneal masses or adenopathy. Abdominal aorta is normal caliber with nqah-[id number]-[id number] calcific athero sclerosis. Bowel loops reveal no abnormal wall thickening or distention. Colonic diverticulosis is present, without CT evidence of diverticulitis. The appendix is unremarkable. CT pelvis: Uterus is surgically absent. Urinary bladder is nondistended. No pelvic masses, fluid or adenopathy. Osseous structures reveal no fractures or traumatic malalignment. No destructive osseous lesions. IMPRESSION: Impression: 1. Large incompletely imaged collections overlying right anterolateral chest wall, most compatible with multiple hematomas and surrounding contusion of the right chest wall. 2. No acute traumatic intra-abdominal or intrapelvic abnormality. 3. Multiple bilateral renal cysts and indeterminate hypodensities,likely mildly hyperdense cysts. Significant bilateral renal atrophy.. This document has been electronically signed by: Martín De Jesus MD on 06/10/2024 18:14:07 Monster Potter MD IMG CT PROCEDURES Edite d Result - Final * IR Insert Tunneled CVC wo Port or Pump More 5yrs Left (06/10/2024 9:39 AM EST) Anatomical Region Laterality Modality Left Interventional R adiology 06/10/2024 10:0 3 AM EST Impressions 06/10/2024 10:05 AM EST Successful placement of a 23 cm tip to cuff hemodialysis catheter via a left IJ approach. ??The catheter is ready for immediate use -------- FINAL REPORT -------- Dictated By: Mata Day Dictated Date: 06/10/2024 10:03 ET Assigned Physician: Mata Day Reviewed and Electronically Signed By: Mata Day Signed Date: 06/10/2024 10:05 ET Workstation ID: [id number] Transcribed By: Self Edit Transcribed Date: 06/10/2024 10:03 ET Narrative 06/10/2024 10:05 AM EST PROCEDURE: Tunnel dialysis catheter placement (PermCath) HISTORY/INDICATION: End stage renal disease TECHNIQUE: The patient was brought the Interventional Suite and placed supine on the angiography table. Preliminary limited ultrasound examination was performed and showed a patent, fully compressible left internal jugular (IJ) vein. The left side of the neck and adjacent anterior chest wall were prepped and draped using sterile technique. Pre-procedure time-out was performed and verified appropriate patient identity, site, side, procedure, and availability of necessary materials. After local anesthesia, a micropuncture set was used to gain access to the left internal jugular (IJ) vein under direct real-time combined ultrasonographic and fluoroscopic guidance. A micropuncture sheath was placed over an 0.018? wire. Local anesthesia was given at the level of the chest wall and a small dermatotomy was made with a #11 blade. The catheter was advanced over a blunt tunneler from the transverse chest incision and its tip was exteriorized at the venotomy site. ??After dilating the tract, the micropuncture sheath was exchanged over an 0.035 wire for the peel-away sheath. The catheter tip was inserted via the sheath under controlled respiration. The sheath was removed. Both lumens were tested, aspirated and flushed well, hep-locked and sterile caps were applied. A final fluoroscopic image was obtained and stored, showing satisfactory position of the catheter, with its tip near the proximal right atrium and no catheter kinking. The catheter was secured in place with a pursestring suture at the tunnel entry site, and the venotomy incision was closed with topical adhesive. The patient tolerated the procedure very well COMPLICATIONS: None immediately EBL: <10 mL Procedure Note Mata Day MD - 06/10/2024 PROCEDURE: Tunnel dialysis catheter placement (PermCath) HISTORY/INDICATION: End stage renal disease TECHNIQUE: The patient was brought the Interventional Suite and placedsupine on the angiography table. Preliminary limited ultrasoundexamination was performed and showed a patent, fully compressible leftinternal jugular (IJ) vein. The left side of the neck and adjacentanterior chest wall were prepped and draped using sterile technique.Pre-procedure time-out was performed and verified appropriate patientidentity, site, side, procedure, and availability of necessarymaterials. After local anesthesia, a micropuncture set was used to gain access to theleft internal jugular (IJ) vein under direct real-time combinedultrasonographic and fluoroscopic guidance. A micropuncture sheath wasplaced over an 0.018? wire. Local anesthesia was given at the level of the chest wall and a smalldermatotomy was made with a #11 blade. The catheter was advanced over ablunt tunneler from the transverse chest incision and its tip wasexteriorized at the venotomy site. After dilating the tract, themicropuncture sheath was exchanged over an 0.035 wire for the peel-awaysheath. The catheter tip was inserted via the sheath under controlledrespiration. The sheath was removed. Both lumens were tested, aspirated and flushed well, hep-locked andsterile caps were applied. A final fluoroscopic image was obtained andstored, showing satisfactory position of the catheter, with its tip nearthe proximal right atrium and no catheter kinking. The catheter was secured in place with a pursestring suture at the tunnelentry site, and the venotomy incision was closed with topical adhesive. The patient tolerated the procedure very well COMPLICATIONS: None immediately EBL: <10 mL IMPRESSION: Successful placement of a 23 cm tip to cuff hemodialysis catheter via aleft IJ approach. The catheter is ready for immediate use -------- FINAL REPORT -------- Dictated By: Mata Day Dictated Date: 06/10/2024 10:03 ET Assigned Physician: Mata Day Reviewed and Electronically Signed By: Mata Day Signed Date: 06/10/2024 10:05 ET Workstation ID: [id number] Transcribed By: Self Edit Transcribed Date: 06/10/2024 10:03 ET Martinez Chavira MD IMG IR PROCEDURES Final Result * TH AN ENDOTRACHEAL(NO CHARGE) (06/10/2024 8:56 AM EST) Mata Lundy DO - 06/10/2024 8:56 AM EST Mata Ibrahim DO ? 06/10/2024 ??9:00 AM General Information and Staff Patient location during procedure: OR Anesthesiologist: Mata Ibrahim DO Resident/SUPERVISOR REFINING: Jessica Warren CRNA Performed: resident/SUPERVISOR REFINING/CAA Performed by: Mata Ibrahim DO Authorized by: Mata Ibrahim DO ?? Intubation Additional Comments Patient actively vomiting and unable to lay flat due to shortness of breath. Decision made for RSI for procedure. [place] scope used for large tongue. Prior to induction treated her hyperkalemia with insulin and dextrose per anesthesia record. Code cart placed outside the room. Induced with anesthesia. [place] placed. Long floppy epiglottis, no bile or stomach contents noted in pharynx. Lots of thick white mucus noted. Intubated with 7.0 ETT. Positive chest rise, positive end tidal, bilateral breath sounds. ETT secured at 22 cm. Airway not difficult Urgency: elective Final Airway Details Successful airway: ETT Cuffed: yes Successful intubation technique: video laryngoscopy Facilitating devices/methods: intubating stylet Endotracheal tube insertion site: oral Blade: Dev ([place] scope 3) ETT size (mm): 7.0 Cormack-Lehane Classification: grade IIa - partial view of glottis (Long epiglottis) Placement verified by: chest auscultation and capnometry Measured from: lips ETT to lips (cm): 22 Number of attempts at approach: 1Final airway type: endotracheal airway Indications and Patient Condition Indications for airway management: anesthesia Spontaneous Ventilation: absent Preoxygenated: yes Injury of skin or soft tissue: Upper denture removed. Patient position: sniffing MILS maintained throughout us Mata Ibrahim DO ANESTHESIA ORDERABLES Final Res ult * Lavender tube (06/09/2024 5:32 AM EST) Only the most recent of2 resultswithin the time period is included. [facility] Extra Tube Hold for add-ons. 06/09/2024 7:01 AM EST [facility] Comment:Auto resulted. Blood Venous blood specimen / Unknown Venipuncture / Unknown 06/09/2024 5:32 AM EST 06/09/2024 5:47 AM EST Ladarius Paniagua MD LAB BLOOD ORDERABLES Final Re sult [facility] [address] [place] [address], [place] [phone] * Hepatitis B surface antigen with reflex to confirmation (06/07/2024 8:51 AM EST) [facility] Hepatitis B Surface Ag Negative Negative LAB CHEMISTRY METHOD 06/07/2024 10:20 AM EST [facility] Blood Venous blood specimen / Unknown Venipuncture / Unknown 06/07/2024 8:51 AM EST 06/07/2024 9:14 AM EST [facility] - 06/07/2024 10:20 AM EST Over the counter supplements containing high doses of biotin may interfere with this assay. ??If interference is suspected, patients shoud be retested after refraining from biotin supplements for 72 hours. us Ladarius Paniagua MD LAB BLOOD ORDERABLES Final Re sult Performing Organization Address [facility]/ZIP Co de Phone Number [facility] [address] [place] [address], [place] [phone] * Hepatitis B surface antibody quantitative (06/07/2024 8:51 AM EST) [facility] Hepatitis B Surface Ab Negative Negative LAB CHEMISTRY METHOD 06/07/2024 10:29 AM EST [facility] Hepatitis B Surface Ab Quantitative 6.5 mIU/mL LAB CHEMISTRY METHOD 06/07/2024 10:29 AM EST [facility] Blood Venous blood specimen / Unknown Venipuncture / Unknown 06/07/2024 8:51 AM EST 06/07/2024 9:14 AM EST [facility] - 06/07/2024 10:29 AM EST >=10 mIU/mL is considered to be consistent with immunity. us Ladarius Paniagua MD LAB BLOOD ORDERABLES Final Re sult Performing Organization Address [facility]/ZIP Co de Phone Number [facility] [address] [place] [address], * ECG 12 lead (06/06/2024 9:13 PM EST) Only the most recent of2 resultswithin the time period is included. Ventricular Rate ECG 75 BPM GEMUSE Atrial Rate 75 BPM GEMUSE P-R Interval 174 ms GEMUSE QRS Duration 80 ms GEMUSE Q-T Interval 386 ms GEMUSE QTc 431 ms GEMUSE P Wave [place] 23 degrees GEMUSE R [place] 6 degrees GEMUSE T [place] -17 degrees GEMUSE ECG Interpretation Normal sinus rhythm Nonspecific ST and T wave abnormality Abnormal ECG When compared with ECG of 06-JUN-2024 01:43, No significant change was found Confirmed by Janet WOLFE JAMES ([id number]) on 06/07/2024 3:21:59 PM GEMUSE 06/06/2024 9:13 PM EST 06/07/2024 3:21 PM EST us Mauro Mueller MD ECG ORDERABLES Final Resul t GEMUSE * IR Insert Non Tunneled CVC More 5yrs (06/06/2024 5:06 PM EST) Anatomical Region Laterality Modality Upper Extremities, Lower Extremities N/A Interventional Radiology 06/06/2024 6:28 PM EST Impressions 06/06/2024 6:36 PM EST 1. ??Patient unable to tolerate positioning for image guided hemodialysis catheter placement. 2. ??Patient unable to tolerate sedation for procedure. 3. ??Ordering provider and current hospitalist was notified of the difficulties. ??Her most recent potassium is noted to be 4.6. ??Bedside dialysis catheter can be attempted when the patient is better able to tolerate the procedure. ??I spoke with anesthesia would be willing to provide support Sunday for a tunneled catheter placement. ?? -------- FINAL REPORT -------- Dictated By: Santy Helms Dictated Date: 06/06/2024 18:28 ET Assigned Physician: Santy Helms Reviewed and Electronically Signed By: Santy Helms Signed Date: 06/06/2024 18:36 ET Workstation ID: [id number] Transcribed By: Self Edit Transcribed Date: 06/06/2024 18:28 ET Narrative 06/06/2024 6:36 PM EST Hemodialysis catheter placement. ESRD Underlying condition: Chronic kidney injury. Interventionalists: Dr. Santy Helms Encounter: Initial Skin dose: 0 mGy PROCEDURE: Informed consent obtained prior to the procedure from the patient's daughter due to her underlying dementia. ??The patient's son was also available immediately prior to the procedure was able to also help explain the procedure to his mother. ??Patient was brought to angiography suite placed in a supine position. ??She immediately was unable to tolerate supine positioning. ??Utilizing 2 pillows and large wedge we elevated her head as much as possible to allow for the imaging table to avoid any collision. We also utilize the son to help calm her as much as possible. ??We also provided a total of 2.0 mg of intravenous VERSED and 25 mcg of FENTANYL. 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 ??Her left IJ was patent. ??Initially the patient allowed us to prep her left neck. ??1% LIDOCAINE was utilized for local anesthesia. ??A small stab incision was made with a #11 blade scalpel. ??At this time the patient became extremely agitated. ??After multiple and extended attempts to de- escalate, the patient said she could not do the procedure. ??She says she was too short of breath to be able to hold still. ??She then broke sterility with her hand and her head movements. ??Due to the patient's agitation, even a groin attempt at this time would not be possible as she literally moved herself intermediate off the table despite our attempts at de-escalation. The patient was then transferred back to her stretcher and her son was brought in the room to again help calm her down. ??The left sided wound was covered with a sterile dressing. ??Hemostasis was achieved. There was <1 ml blood loss. ?? Procedure Note Santy Helms MD - 06/06/2024 Hemodialysis catheter placement. ESRD Underlying condition: Chronic kidney injury. Interventionalists: Dr. Santy Helms Encounter: Initial Skin dose: 0 mGy PROCEDURE: Informed consent obtained prior to the procedure from thepatient's daughter due to her underlying dementia. The patient's son wasalso available immediately prior to the procedure was able to also helpexplain the procedure to his mother. [facility] in a supine position. She immediately was unable to toleratesupine positioning. Utilizing 2 pillows and large wedge we elevated herhead as much as possible to allow for the imaging table to avoid anycollision. We also utilize the son to help calm her as much as possible. We alsoprovided a total of 2.0 mg of intravenous VERSED and 25 mcg of FENTANYL. Ultrasound was performed confirming known occlusion of the right IJ withexpansile thrombus as seen on prior imaging. Her left IJ was patent.Initially the patient allowed us to prep her left neck. 1% LIDOCAINE wasutilized for local anesthesia. A small stab incision was made with a #11blade scalpel. At this time the patient became extremely agitated. Aftermultiple and extended attempts to de-escalate, the patient said she couldnot do the procedure. She says she was too short of breath to be able tohold still. She then broke sterility with her hand and her headmovements. Due to the patient's agitation, even a groin attempt at thistime would not be possible as she literally moved herself intermediate off thetable despite our attempts at de-escalation. The patient was then transferred back to her stretcher and her son wasbrought in the room to again help calm her down. The left sided wound wascovered with a sterile dressing. Hemostasis was achieved. There was <1 ml blood loss. IMPRESSION: 1. Patient unable to tolerate positioning for image guided hemodialysiscatheter placement. 2. Patient unable to tolerate sedation for procedure. 3. Ordering provider and current hospitalist was notified of thedifficulties. Her most recent potassium is noted to be 4.6. Bedsidedialysis catheter can be attempted when the patient is better able totolerate the procedure. I spoke with anesthesia would be willing toprovide support Sunday for a tunneled catheter placement. -------- FINAL REPORT -------- Dictated By: Santy Helms Dictated Date: 06/06/2024 18:28 ET Assigned Physician: Santy Helms Reviewed and Electronically Signed By: Santy Helms Signed Date: 06/06/2024 18:36 ET Workstation ID: [id number] Transcribed By: Self Edit Transcribed Date: 06/06/2024 18:28 ET Martinez Chavira MD IMG IR PROCEDURES Final Result * Troponin I high sensitivity (06/05/2024 10:18 PM EST) High Sensitivity Troponin I 16 <=54 ng/L LAB CHEMISTRY METHOD 06/05/2024 10:58 PM EST [facility] Blood Venous blood specimen / Unknown Venipuncture / Unknown 06/05/2024 10:18 PM EST 06/05/2024 10:30 PM EST Narrative [facility] - 06/05/2024 10:58 PM EST High levels of biotin in samples may falsely decrease hsTroponin values. ??Use caution when interpreting hsTroponin results in patients taking biotin who exhibit renal impairment (eGFR <60) or in patients taking more than 20 mg/day of biotin. Mateo DELEON LAB BLOOD ORDERABLES Final Res ult [facility] [address] [place] [address], * XR Chest 1 View (06/05/2024 8:26 PM EST) Anatomical Region Laterality Modality Body Radiographic Nubia ging 06/06/2024 9:53 AM EST Impressions 06/06/2024 10:01 AM EST FINDINGS/IMPRESSION: Pulmonary vascular congestion with cardiac silhouette enlargement. ??Patchy opacity in the periphery of the right upper lobe may reflect pulmonary edema or pneumonia. ??No pleural effusion or pneumothorax. ??Bones are similar compared to the prior exam. -------- FINAL REPORT -------- Dictated By: ADÁN FRASER Dictated Date: 06/06/2024 09:53 ET Assigned Physician: ADÁN FRASER Reviewed and Electronically Signed By: ADÁN FRASER Signed Date: 06/06/2024 10:01 ET Workstation ID: [id number] Transcribed By: Self Edit Transcribed Date: 06/06/2024 09:53 ET Narrative 06/06/2024 10:01 AM EST XR CHEST 1 VIEW INDICATION: ??Hypoxemia TECHNIQUE: XR CHEST 1 VIEW COMPARISON: 03/27/2023 Procedure Note Adán Fraser MD - 06/06/2024 XR CHEST 1 VIEW INDICATION: Hypoxemia TECHNIQUE: XR CHEST 1 VIEW COMPARISON: 03/27/2023 IMPRESSION: FINDINGS/IMPRESSION: Pulmonary vascular congestion with cardiac silhouetteenlargement. Patchy opacity in the periphery of the right upper lobe mayreflect pulmonary edema or pneumonia. No pleural effusion orpneumothorax. Bones are similar compared to the prior exam. -------- FINAL REPORT -------- Dictated By: ADÁN FRASER Dictated Date: 06/06/2024 09:53 ET Assigned Physician: ADÁN FRASER Reviewed and Electronically Signed By: ADÁN FRASER Signed Date: 06/06/2024 10:01 ET Workstation ID: [id number] Transcribed By: Self Edit Transcribed Date: 06/06/2024 09:53 ET Mauro Mueller MD IMG XR PROCEDURES Final Res ult * Hemoglobin A1c (04/15/2024 9:51 AM EST) Hemoglobin A1C 5.1 <6.5 % LAB CHEMISTRY METHOD 04/15/2024 1:41 PM EST [facility] Mean Bld Glu Estim. 100 mg/dL LAB CHEMISTRY METHOD 04/15/2024 1:41 PM EST [facility] Blood Venous blood specimen / Unknown Venipuncture / Unknown 04/15/2024 9:51 AM EST 04/15/2024 9:51 AM EST Chino Jimenez LAB BLOOD ORDERABLES Final Resul t [facility] [address] [place] [address], [place] [phone] * KRYSTAL DEXA AXIAL SKELETON (08/18/2021 6:12 PM EDT) Anatomical Region Laterality Modality Mammography 08/18/2021 9:31 AM EDT Narrative 08/18/2021 6:12 PM EDT [facility] Diagnostic Imaging Department [address] [place] [id number] Patient: ??GRIFFITHS BALDWIN,CINDY ?/Age/Sex: 1945 76 - F Unit#: ??[id number] ? Location/Status: ??SPDIMAM/REG CLI ? Mnemonic/Ordering Site: ??MAMDEXAAX/SPMAM Ordering Physician: ??ANGEL DENT MD Krystal Dexa Axial Skeleton - 08/18/21 - 1023 History: Low estrogen state due to menopause. On omeprazole. Comparison: 06/26/17 Findings: Bone densitometry is performed utilizing dual energy x-ray absorptiometry (DXA) in the Betting[employer]pert unit. The lumbar spine was evaluated in the AP projection. The patient was unable to complete the study of the hips due to claustrophobia. The results indicate low bone mass (osteopenia) to cysts, with a lumbar spine T-score of -1.4. There has been a statistically significant decrease in bone mineral density since the previous study. ??The detailed DEXA report will be mailed to the referring physician's office. IMPRESSION: Osteopenia. [id number] Dictating Physician: ??SHERICE CULLEN MD Electronically Signed by: ??SHERICE CULLEN MD Dic Date/Time: ??08/18/211810 Sign date/Time: ??08/18/211811 Procedure Note Sherice Cullen MD - 05/24/2022 [facility] Diagnostic Imaging Department [address] [place] [id number] Patient: TUNDE BALDWINCINDY /Age/Sex: 1945 - 76 - F Unit#: [id number] Location/Status: SPDIMA/REG CLI Mnemonic/Ordering Site: [facility] Ordering Physician: ANGEL DENT MD [facility] Dexa Axial Skeleton - 08/18/21 - 1024 History: Low estrogen state due to menopause. On omeprazole. Comparison: 06/26/17 Findings: Bone densitometry is performed utilizing dual energy x-ray absorptiometry(DXA) in the [employer]pert unit. The lumbar spine was evaluated in the APprojection. The patient was unable to complete the study of the hips due toclaustrophobia. The results indicate low bone mass (osteopenia) to cysts, with a lumbarspine T-score of -1.4. There has been a statistically significant decrease inbone mineral density since the previous study. The detailed DEXA report willbe mailed to the referring physician's office. IMPRESSION: Osteopenia. [id number] Dictating Physician: SHERICE CULLEN MD Electronically Signed by: SHERICE CULLEN MD Dic Date/Time: 03/17/22 1811 Sign date/Time: 08/18/21 1812 Angel Dent DO IMG BI PROCEDURES Final Resul t from Last 3 Months or Most Recently Relevant to Health Maintenance Insurance MEDICAID - [place] MEDICARE Advance Directives Documents on File Type Date Recorded Patient Senior Software Development Manager Expl anation Advance Directives and Living Will 06/24/2024 9:09 AM Health Care Decision (hx) 03/30/2023 AD GOFF DIRECTIVE Health Care Decision (hx) 03/30/2023 AD GOFF DIRECTIVE Health Care Decision (hx) 03/30/2023 AD GOFF DIRECTIVE Health Care Decision (hx) 03/30/2023 AD GOFF DIRECTIVE Health Care Decision (hx) 03/30/2023 AD GOFF DIRECTIVE Health Care Decision (hx) 11/16/2021 AD GOFF DIRECTIVE Health Care Decision (hx) 11/16/2021 AD GOFF DIRECTIVE Health Care Decision (hx) 11/16/2021 AD GOFF DIRECTIVE Health Care Decision (hx) 11/16/2021 AD GOFF DIRECTIVE Health Care Decision (hx) 11/16/2021 AD GOFF DIRECTIVE Health Care Decision (hx) 11/16/2021 AD GOFF DIRECTIVE Health Care Decision (hx) 11/16/2021 AD GOFF DIRECTIVE Health Care Decision (hx) 11/16/2021 AD GOFF DIRECTIVE Health Care Decision (hx) 11/16/2021 AD GOFF DIRECTIVE Health Care Decision (hx) 11/16/2021 AD GOFF DIRECTIVE Health Care Decision (hx) 11/16/2021 AD GOFF DIRECTIVE Health Care Decision (hx) 11/16/2021 AD GOFF DIRECTIVE Health Care Decision (hx) 07/14/2021 AD GOFF DIRECTIVE Health Care Decision (hx) 07/14/2021 AD GOFF DIRECTIVE Health Care Decision (hx) 07/14/2021 AD GOFF DIRECTIVE Health Care Decision (hx) 07/14/2021 AD GOFF DIRECTIVE Health Care Decision (hx) 07/14/2021 AD GOFF DIRECTIVE Health Care Decision (hx) 07/14/2021 AD GOFF DIRECTIVE Health Care Decision (hx) 07/14/2021 AD GOFF DIRECTIVE Health Care Decision (hx) 07/14/2021 AD GOFF DIRECTIVE Health Care Decision (hx) 07/14/2021 AD GOFF DIRECTIVE Health Care Decision (hx) 07/14/2021 AD GOFF DIRECTIVE Health Care Decision (hx) 07/14/2021 AD GOFF DIRECTIVE Health Care Decision (hx) 07/14/2021 AD GOFF DIRECTIVE Health Care Decision (hx) 07/14/2021 AD GOFF DIRECTIVE Health Care Decision (hx) 07/14/2021 AD GOFF DIRECTIVE Health Care Decision (hx) 07/14/2021 AD GOFF DIRECTIVE Health Care Decision (hx) 07/14/2021 AD GOFF DIRECTIVE Health Care Decision (hx) 01/09/2013 AD GOFF DIRECTIVE Health Care Decision (hx) 01/09/2013 AD GOFF DIRECTIVE Health Care Decision (hx) 01/09/2013 AD GOFF DIRECTIVE Health Care Decision (hx) 01/09/2013 AD GOFF DIRECTIVE * Full Code - Confirmed (Latest Code Status on File) Date Activated Date Inactivated Comments 06/06/2024 1:02 AM 06/25/2024 7:44 PM This code sta tus was ascertained in the following way: Code status discussion: discussion with patient To update the patient's code status, place a code status order. Do not modify or discontinue any currently active code status orders. * Full Code - Default Date Activated Date Inactivated Comments 06/05/2024 7:52 PM 06/06/2024 1:02 AM This is order is used when code status has not been discussed with the patient, or code status is otherwise unknown/unconfirmed To update the patient's code status, place a code status order. Do not modify or discontinue any currently active code status orders. Healthcare Agents on File Name Relationship Healthcare Agent [facility] Communication Go Dennis Other Health Care Agent Dipika Bhardwaj Other Health Care Agent Care Teams [employer] Relationship Specialty Start Date End Date Angel Dent DO [address] [place] [phone] PCP - General 05/19/15
== END 2024-08-08 10:55 | disposition home or self-care (01) ==
LOC: HO.US 10:54
PROVIDERS: PCP Internal Medicine; Visit Provider Internal Medicine Hypertension Specialist
DX: I77.0 Arteriovenous fistula, acquired (principal); N18.6 End stage renal disease; I82.621 Acute embolism and thrombosis of deep veins of right upper extremity
CPT/HCPCS: 93971

== ENCOUNTER → 2024-08-08 11:02 | Outpatient (BNV) | payer MEDICARE, MEDICAID, SELFPAY | PROVIDERS: PCP Internal Medicine; Visit Provider Radiology Diagnostic Radiology | DX: R22.31 Localized swelling, mass and lump, right upper limb (principal); N18.6 End stage renal disease | CPT/HCPCS: 93971 ==

== ENCOUNTER → 2024-09-02 | Outpatient (BNV) | payer MEDICARE, MEDICAID, SELFPAY | PROVIDERS: PCP Internal Medicine; Visit Provider Internal Medicine Hypertension Specialist | DX: N18.6 End stage renal disease (principal) | CPT/HCPCS: 90961 ==

== ENCOUNTER → 2024-10-02 | Outpatient (BNV) | payer MEDICARE, MEDICAID, SELFPAY | PROVIDERS: PCP Internal Medicine; Visit Provider Internal Medicine Hypertension Specialist | DX: N18.6 End stage renal disease (principal) | CPT/HCPCS: 90961 ==

== ENCOUNTER → 2025-01-02 23:59 | Outpatient (BNV) | payer MEDICARE, MEDICAID, SELFPAY | PROVIDERS: PCP Internal Medicine; Visit Provider Internal Medicine Hypertension Specialist | DX: N18.6 End stage renal disease (principal) | CPT/HCPCS: 90961 ==

== ENCOUNTER → 2025-02-02 23:59 | Outpatient (BNV) | payer MEDICARE, MEDICAID, SELFPAY | PROVIDERS: PCP Internal Medicine; Visit Provider Internal Medicine Hypertension Specialist | DX: N18.6 End stage renal disease (principal) | CPT/HCPCS: 90961 ==

== ENCOUNTER → 2025-03-04 23:59 | Outpatient (BNV) | payer MEDICARE, MEDICAID, SELFPAY | PROVIDERS: PCP Internal Medicine; Visit Provider Internal Medicine Hypertension Specialist | DX: N18.6 End stage renal disease (principal) | CPT/HCPCS: 90962 ==

== ENCOUNTER → 2025-04-04 23:59 | Outpatient (BNV) | payer MEDICARE, MEDICAID, SELFPAY | PROVIDERS: PCP Internal Medicine; Visit Provider Internal Medicine Hypertension Specialist | DX: N18.6 End stage renal disease (principal) | CPT/HCPCS: 90961 ==

== ENCOUNTER → 2025-05-04 23:59 | Outpatient (BNV) | payer MEDICARE, MEDICAID, SELFPAY | PROVIDERS: PCP Internal Medicine; Visit Provider Internal Medicine Hypertension Specialist | DX: N18.6 End stage renal disease (principal) | CPT/HCPCS: 90961 ==